=== PATIENT | male | born 1965 | race Caucasian/White ===

== ENCOUNTER 2018-12-11 19:22 | Emergency (ER) | payer OTHER ==
[~2018-12-11] VITALS: Ht 170.2 cm; Wt 66.7 kg
[2018-12-11 20:13] LABS: ABSOLUTE NEUTROPHILS 4.2 thou/uL (1.4-8.2); EOSINOPHILS 0.7 % (0.0-3.0); HEMATOCRIT 48.2 % (42.0-52.0); HEMOGLOBIN 16.8 gm/dL (14.0-18.0); MCH 36.7 pg (26.0-34.0); MCV 104.8 fL (80.0-100.0); MONOCYTES 9.7 % (1.0-8.0); PLATELET COUNT 196 thou/uL (150-400); POLYS 61.6 % (36.0-66.0); RBC 4.59 mil/uL (4.50-6.00); RDW 12.9 % (10.5-14.5); WBC 6.8 thou/uL (4.0-11.0)
[2018-12-11 20:19] LABS: CALCIUM 8.9 mg/dL (8.5-10.1); CREATININE 0.7 mg/dL (0.7-1.3); POTASSIUM 3.5 mmol/L (3.5-5.1)
[2018-12-11 22:30] LABS: AMP/METHAMP Negative (Negative); BARBITURATES Negative (Negative); BENZODIAZEPINES Negative (Negative); COCAINE Negative (Negative); METHADONE Negative (Negative); OPIATES Negative (Negative); PCP Negative (Negative)
--- NOTE | 2018-12-11 23:37 | EKG ---
[address] [place] [address] ELECTROCARDIOGRAM REPORT Name: NIKO HILLIARD Room #: YOLI Mendoza#: [id number] Admission: 12/11/18 Attend Phys: Discharge: Date of : 67 Report #: [id number] THIS REPORT FOR: //name// [facility] ED Test Date: 2018-12-11 Test Time: 20:01:02 Pat Name: NIKO HILLIARD Department: Room: Gender: M Copyholder: YASMINE NEWELL : 1965 Requested By: Patrica Dhaliwal Order Number: [id number] MD: Allan Chavarria Measurements Intervals [place] Rate: 82 P: 73 FL: 163 QRS: 54 QRSD: 96 T: 44 QT: 376 QTc: 439 Interpretive Statements Sinus rhythm No previous ECG available for comparison Electronically Signed On 12-11-2018 23:37:01 CLINICAL MARKETING MANAGER by Allan Chavarria [email or web address] <ELECTRONICALLY SIGNED> By: Allan Chavarria MD 12/11/18 2337 00 00 Allan Chavarria MD /EPI
[2018-12-12 05:21] VITALS: BP 121/83
== END 2018-12-12 05:22 | disposition home or self-care (01) ==
LOC: ER 19:22
PROVIDERS: Student in an Organized Health Care Education/Training Program
DX: F10.129 Alcohol abuse with intoxication, unspecified (principal)

== ENCOUNTER 2019-01-05 14:43 | Emergency (ER) | payer OTHER ==
[~2019-01-05] VITALS: Ht 170.2 cm; Wt 65.8 kg
[2019-01-05 15:32] LABS: URINE BILIRUBIN NEGATIVE (Negative); URINE BLOOD TRACE (Negative); URINE CLARITY CLEAR; URINE COLOR YELLOW; URINE GLUCOSE-RANDOM* NEGATIVE (Negative); URINE KETONES NEGATIVE (Negative); URINE LEUKOCYTES-REFLEX NEGATIVE (Negative); URINE NITRITE-REFLEX NEGATIVE (Negative); URINE PROTEIN (DIPSTICK) 3+ (Negative); URINE UROBILINOGEN 0.2 E.U./dl (0.2-1.0)
[2019-01-05 15:36] LABS: CALCIUM 8.6 mg/dL (8.5-10.1); CREATININE 0.7 mg/dL (0.7-1.3); POTASSIUM 3.6 mmol/L (3.5-5.1)
[2019-01-05 15:37] LABS: ABSOLUTE NEUTROPHILS 3.3 thou/uL (1.4-8.2); BASOPHILS 1.1 % (0.0-2.0); EOSINOPHILS 0.4 % (0.0-3.0); HEMATOCRIT 50.1 % (42.0-52.0); HEMOGLOBIN 17.5 gm/dL (14.0-18.0); LYMPHOCYTES 37.2 % (24.0-44.0); MCH 36.4 pg (26.0-34.0); MCV 103.9 fL (80.0-100.0); MONOCYTES 8.3 % (1.0-8.0); PLATELET COUNT 134 thou/uL (150-400); RBC 4.82 mil/uL (4.50-6.00); RDW 13.6 % (10.5-14.5); WBC 6.3 thou/uL (4.0-11.0)
[2019-01-05 15:40] LABS: AMP/METHAMP Negative (Negative); BARBITURATES Negative (Negative); BENZODIAZEPINES Negative (Negative); COCAINE Negative (Negative); METHADONE Negative (Negative); OPIATES Negative (Negative); PCP Negative (Negative)
[2019-01-05 15:41] LABS: BACTERIA-REFLEX None Seen /HPF (None Seen); CRYSTALS None Seen /LPF (None Seen); HYALINE CASTS 0-3 Few /LPF (None Seen); SQUAMOUS None Seen /LPF (0-3); URINE RBC 0-2 Rare /HPF (0-2); URINE WBC-REFLEX 0-5 Rare /HPF (0-5)
[2019-01-05 17:30] VITALS: BP 138/98
== END 2019-01-05 19:55 | disposition home or self-care (01) ==
LOC: ER 14:43
PROVIDERS: Emergency Medicine
DX: F10.129 Alcohol abuse with intoxication, unspecified (principal); Y90.8 Blood alcohol level of 240 mg/100 ml or more

== ENCOUNTER 2019-08-28 03:10 | Emergency (ER) | payer OTHER ==
[~2019-08-28] VITALS: Ht 170.2 cm; Wt 63.5 kg
[2019-08-28 04:17] LABS: HEMATOCRIT 49.5 % (42.0-52.0); HEMOGLOBIN 17.2 gm/dL (14.0-18.0); MCH 36.4 pg (26.0-34.0); MCHC 34.8 g/dL (28.0-37.0); MCV 104.7 fL (80.0-100.0); RBC 4.73 mil/uL (4.50-6.00); RDW 14.3 % (10.5-14.5); WBC 7.1 thou/uL (4.0-11.0)
[2019-08-28 04:36] LABS: CALCIUM 8.5 mg/dL (8.5-10.1); CREATININE 0.9 mg/dL (0.7-1.3); POTASSIUM 3.9 mmol/L (3.5-5.1)
[2019-08-28 13:02] VITALS: BP 136/92
== END 2019-08-28 13:02 | disposition home or self-care (01) ==
LOC: ER 03:10
PROVIDERS: Emergency Medicine
DX: F32.9 Major depressive disorder, single episode, unspecified (principal); F10.129 Alcohol abuse with intoxication, unspecified; R45.851 Suicidal ideations; Y90.0 Blood alcohol level of less than 20 mg/100 ml

== ENCOUNTER 2019-12-04 12:13 | Emergency (ER) | payer OTHER ==
[~2019-12-04] VITALS: Ht 167.6 cm; Wt 61.2 kg
[2019-12-04 12:47] LABS: ABSOLUTE NEUTROPHILS 7.2 thou/uL (1.4-8.2); BASOPHILS 0.6 % (0.0-2.0); EOSINOPHILS 0.4 % (0.0-3.0); HEMATOCRIT 53.1 % (42.0-52.0); LYMPHOCYTES 27.2 % (24.0-44.0); MCH 34.4 pg (26.0-34.0); MCHC 33.8 g/dL (28.0-37.0); MCV 101.7 fL (80.0-100.0); MONOCYTES 7.4 % (1.0-8.0); PLATELET COUNT 210 thou/uL (150-400); POLYS 64.4 % (36.0-66.0); RBC 5.22 mil/uL (4.50-6.00); RDW 13.5 % (10.5-14.5); WBC 11.2 thou/uL (4.0-11.0)
[2019-12-04 12:55] LABS: CALCIUM 8.8 mg/dL (8.5-10.1); CREATININE 0.9 mg/dL (0.7-1.3); POTASSIUM 3.9 mmol/L (3.5-5.1)
[2019-12-04 13:01] LABS: ALBUMIN 3.8 g/dL (3.4-5.0); TOTAL BILIRUBIN 0.4 mg/dL (<0.1-1.0); TOTAL PROTEIN 7.9 g/dL (6.4-8.2)
[2019-12-04 13:59] LABS: URINE BILIRUBIN NEGATIVE (Negative); URINE BLOOD 1+ (Negative); URINE CLARITY CLEAR; URINE COLOR YELLOW; URINE GLUCOSE-RANDOM* NEGATIVE (Negative); URINE KETONES 1+ (Negative); URINE LEUKOCYTES-REFLEX NEGATIVE (Negative); URINE NITRITE-REFLEX NEGATIVE (Negative); URINE PROTEIN (DIPSTICK) 2+ (Negative); URINE UROBILINOGEN 0.2 E.U./dl (0.2-1.0)
[2019-12-04 14:07] LABS: SQUAMOUS 0-3 Few /LPF (0-3); URINE WBC-REFLEX 0-5 Rare /HPF (0-5)
[2019-12-04 14:08] LABS: BACTERIA-REFLEX 1-9 Few /HPF (None Seen); CASTS None Seen /LPF (None Seen); CRYSTALS None Seen /LPF (None Seen); URINE RBC 0-2 Rare /HPF (0-2)
[2019-12-04 14:46] VITALS: BP 105/67
== END 2019-12-04 15:30 | disposition home or self-care (01) ==
LOC: ER 12:13
PROVIDERS: Physician Assistant
DX: K62.5 Hemorrhage of anus and rectum (principal); F10.10 Alcohol abuse, uncomplicated; G89.29 Other chronic pain; M54.9 Dorsalgia, unspecified

== ENCOUNTER 2019-12-31 19:36 | Inpatient (IN) | payer OTHER ==
[~2019-12-31] VITALS: Ht 170.2 cm; Wt 70.4 kg
--- NOTE | ~2019-12-31 | O ---
[facility] [place] [address] OPERATIVE REPORT Name: NIKO HILLIARD Room #: 211-P ADM IN M.R.#: [id number] Admission: 12/31/19 Attend Phys: Jaclyn Brewer MD Discharge: Date of : 67 Report #: [id number] THIS REPORT FOR: cc: LUISA - No family physician/PCP LUISA - No family physician/PCP Villa Stern MD ~ THIS REPORT FOR: //name// CC: LUISA physician/PCP Jaclyn Brewer DATE OF SERVICE: 01/02/2020 PREOPERATIVE DIAGNOSIS: Mandible fracture. POSTOPERATIVE DIAGNOSIS: Mandible fracture. OPERATIVE PROCEDURE: Intradental wire of anterior body of mandible fracture. ANESTHESIA: General by laryngeal mask. DESCRIPTION OF PROCEDURE: The patient was taken to the operating room and placed in supine position. General anesthesia was induced by laryngeal mask. Once adequate general anesthesia was obtained, a 24-gauge wire was threaded between the two anterior incisors. It was then approximated and twisted to bring them together and to bring the mandible fracture together. There was quite a bit of purulence flowing from the wound as I brought the 2 fracture fragments together. I then cut the wire and tucked it for comfort. The patient tolerated the procedure well and he was undergoing a procedure on his hand by Dr. Edwards. By: 1014 1022 Villa Stern MD /nt
[2019-12-31 19:39] VITALS: BP 117/74
[2019-12-31 20:44] LABS: HEMATOCRIT 43.8 % (42.0-52.0); MCH 34.7 pg (26.0-34.0); MCHC 34.2 g/dL (28.0-37.0); MCV 101.4 fL (80.0-100.0); PLATELET COUNT 121 thou/uL (150-400); RBC 4.31 mil/uL (4.50-6.00); RDW 14.6 % (10.5-14.5); WBC 22.8 thou/uL (4.0-11.0)
[2019-12-31 20:54] LABS: CALCIUM 8.6 mg/dL (8.5-10.1); CREATININE 1.1 mg/dL (0.7-1.3); POTASSIUM 3.8 mmol/L (3.5-5.1)
[2019-12-31 21:00] LABS: ALBUMIN 2.8 g/dL (3.4-5.0); TOTAL BILIRUBIN 0.9 mg/dL (<0.1-1.0); TOTAL PROTEIN 7.5 g/dL (6.4-8.2)
[2019-12-31] MEDS ORDERED: LIPITOR 20 MG T20 M1 PO (21:03)
[2019-12-31] MEDS ORDERED: VISTARIL50 MG PO (21:04)
[2019-12-31] MEDS ORDERED: REVIA 50 MG TAB50 MG PO (21:05)
[2019-12-31] MEDS ORDERED: M-NATAL PLUS T1 EACH PO (21:06)
[2019-12-31] MEDS ORDERED: BRINTELLIX10 MG PO (21:06)
[2019-12-31 21:16] LABS: ABSOLUTE NEUTROPHILS 21.7 thou/uL (1.4-8.2); PLATELET ESTIMATE DECREASED
[2019-12-31 22:04] VITALS: BP 103/55
[2019-12-31 22:18] VITALS: BP 107/70
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
[2020-01-01 02:54] VITALS: BP 102/71
[2020-01-01 03:22] LABS: HEMATOCRIT 40.8 % (42.0-52.0); HEMOGLOBIN 13.8 gm/dL (14.0-18.0); MCH 33.9 pg (26.0-34.0); MCHC 33.8 g/dL (28.0-37.0); MCV 100.1 fL (80.0-100.0); RBC 4.08 mil/uL (4.50-6.00); RDW 14.1 % (10.5-14.5); WBC 14.6 thou/uL (4.0-11.0)
[2020-01-01 03:31] LABS: CALCIUM 8.1 mg/dL (8.5-10.1)
--- NOTE | 2020-01-01 03:37 | NUR ---
ASSESSMENT: PT ARRIVED ON THE UNIT AT APPROXIMATRLY 2300 VIA ED ACCOMPANIED BY STAFF MEMBER. VSS. HR ELELVATED 120-130'S. ETOH LEVEL 220. PT APPPEARS UNKEMPT. LEFT HAND NOTED WITH 3+ EDEMA, RIGHT HAND 2= EDEMA. BOTH RED BILATERALLY. PT REAT PAIN 3/10. PT WAS MORE CONCERNED WITH HIS LOOSE TEETH, SAYING THAT HE WAS GOING TO PULL SOME OUT ON THE BOTTOM BUT PLACED THEM BACK IN INCORRECTLY AND IT WAS VERY DIFFICULT TO EAT. DULCE MARIA HUIZAR WAS CONCULTED TO SEE ROUTINELY IN THE AM. NO CALL BACK, MESSAGE LET WITH ANSWERING SERVICE. CIWA SCORE 2-4. PT STATE THAT HE FELL LAST WEEK R/T TO THE SNOW AND ICE. PT HAS A STEADY GAIT. URINE WAS DARK ACSPER COLORED, USES URINAL. AFEBRILE. ST PER MONITOR. SLOW PROGRESS TOWARDS DC GOALS, WILL CONTINUE TO MONITOR.
[2020-01-01 07:17] VITALS: BP 120/71
[2020-01-01 12:02] VITALS: BP 101/65
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
--- NOTE | 2020-01-01 18:04 | NUR ---
RECEIVED PT'S CARE AROUND 0710; PT. ON BED; AOX4; NO DIET ORDERS PLACED; POTASSIUM 3.0; PHYSICIAN PAGED; ORDERS RECEIVED; POTASSIUM REPLACED; DURING ASSESSMENT PT. C/O BACK PAIN & HANDS; PHYSICIAN NOTIFIED; NO NEW ORDERS; CULTURE RESULTS FROM LAB RECEIVED; PHYSICIAN NOTIFIED DURING ROUNDING; NO NEW ORDERS; PHYSICIAN ROUNDING ON PT AROUND 1030; ONE MORE TIME NOTIFIED ABOUT DIET; ORDERS RECEIVED; CONSULT DONE; VANCOMYCIN STARTED; PT. EDUCATED ABOUT FALL PRECAUTIONS; ST. UNDERSTANDING; MRI ORDERS ON PLACED; SCREENING PERFORMED; PER CONSULT ORDERS MRI STAT; CHANGED IT; ST ON THE MONITOR WITH EXERTION; NO C/O PALPITATIONS; REQUESTED VACCINE RECORTS FROM DOG'S FRIEND; ST. WILL REQUEST IT; ASSESSMENT CHARGED; FOLLOWING POC; WILL PASS ON REPORT;
[2020-01-01 18:09] VITALS: BP 114/72
[2020-01-01 20:10] VITALS: BP 119/70
[2020-01-02 04:45] VITALS: BP 108/67
[2020-01-02 06:10] LABS: HEMATOCRIT 34.2 % (42.0-52.0); MCH 34.9 pg (26.0-34.0); MCHC 34.4 g/dL (28.0-37.0); MCV 101.6 fL (80.0-100.0); RBC 3.37 mil/uL (4.50-6.00); RDW 14.9 % (10.5-14.5); WBC 13.3 thou/uL (4.0-11.0)
[2020-01-02 06:18] LABS: CALCIUM 7.8 mg/dL (8.5-10.1); CREATININE 0.9 mg/dL (0.7-1.3)
[2020-01-02 06:25] LABS: POTASSIUM 2.9 mmol/L (3.5-5.1)
[2020-01-02 07:07] LABS: HEMOGLOBIN 11.8 gm/dL (14.0-18.0)
--- NOTE | 2020-01-02 07:45 | NUR ---
PATIENT NPO SINCE MIDNIGHT FOR A POSSIBLE I&D TODAY.CT WAS DONE LAST NIGHT.OTORHINOLARYNGOLOGY WAS CONSULTED FOR MANDIBULAR FRACTURE.POTASSIUM LOW THIS AM;REPLACED IT WITH IV POTASSIUM.POC CONTINUED.
[2020-01-02 08:00] VITALS: BP 94/44
[2020-01-02 12:13] VITALS: BP 116/84
[2020-01-02 16:00] VITALS: BP 109/74
--- NOTE | 2020-01-02 16:00 | NUR ---
PT RETURNED FROM OR, SAEED BANDAGE ON LEFT ARM, DENIES PAIN, ATE LUNCH, NO PROBLEMS SWALLOWING FOOD. PT'S ARM RAISED ABOVE LEVEL OF HEART. WILL MONITOR.
[2020-01-02 19:36] VITALS: BP 112/79
[2020-01-03 03:15] VITALS: BP 125/88
--- NOTE | 2020-01-03 04:48 | NUR ---
ASSUMED PT CARE AT AROUND 1900, PT IS ALERT AND ORIENTEDX4,DENIES CHEST PAIN OR SOB, COMLAINED OF JAW PAIN AND BACK PAIN, PAIN MEDICINE GIVEN WITH PARTIAL RELIEF,PT IS ON ABT, NO ADVERSE REACTIONS NOTED, SR ON THE MONITOR, ASSESSMENTS CHARTED, RESTED WELL, WILL CONTINUE TO MONITOR
[2020-01-03 07:50] VITALS: BP 131/83
--- NOTE | 2020-01-03 08:32 | O ---
[facility] [place] [address] OPERATIVE REPORT Name: NIKO HILLIARD Room #: 211-P ADM IN M.R.#: [id number] Admission: 12/31/19 Attend Phys: Jaclyn Brewer MD Discharge: Date of : 67 Report #: [id number] THIS REPORT FOR: cc: LUISA - No family physician/PCP LUISA - No family physician/PCP Christiano Edwards MD ~ THIS REPORT FOR: //name// CC: [facility] physician/PCP Jaclyn Brewer DATE OF SERVICE: 01/02/2020 PREOPERATIVE DIAGNOSIS: Left hand abscess. POSTOPERATIVE DIAGNOSIS: Left hand abscess. PROCEDURE: I and D, left hand. SURGEON: Christiano Edwards MD. LOADERS: Mariajose Dobbs. ANESTHESIA: General. FINDINGS: There is purulence in the first webspace with epidermal lysis of the dorsum of the hand. SPECIMENS: Cultures were sent of the purulent fluid. TOURNIQUET TIME: 8 minutes. COMPLICATIONS: None. CONDITION UPON LEAVING THE OPERATING ROOM: Stable. INDICATIONS FOR PROCEDURE: The patient is a 54-year-old male who about a week or so ago was reportedly bitten by a dog. He has had significant inflammation and swelling in the dorsum of his hand. MRI scan shown to have cellulitis of the dorsum of his hand with possible tenosynovitis of his extensor tendons. After discussion with him, he elected for I and D of his left hand. DESCRIPTION OF PROCEDURE: Risks, benefits, alternatives, complications were discussed in detail with the patient including but not limited to risk of anesthesia, risk of damage to nerves, arteries, blood vessels, risk for infection, bleeding, risk for continued infection, need for reoperation. [facility] [address] [place] [address] OPERATIVE REPORT Name: NIKO HILLIARD Room #: 211-P ADM IN M.R.#: [id number] Admission: 12/31/19 Attend Phys: Jaclyn Brewer MD Discharge: Date of : 67 Report #: [id number] Informed consent was obtained from the patient. Left hand was appropriately marked in the preoperative holding area. He previously was on IV antibiotics and these were continued, brought to the operating room and placed in supine position on operating room table. LMA anesthesia was induced without complication. Tourniquet was placed on the left upper extremity. Left upper extremity was prepped and draped in normal sterile fashion. Timeout was performed properly identifying the patient and procedure as well as instrumentation. All in the operating room were in agreement. Left upper extremity was elevated, tourniquet was inflated. Tourniquet time was 8 minutes. There was a dorsal eschar on the first webspace. This was removed and this wound was explored. This was extended ulnarly and proximal with 10 blade and the dorsal skin was undermined. There was noted to be purulence within the first dorsal webspace. This was opened with a mosquito hemostat. There was purulence in this area and cultures of this were taken. The wound was then thoroughly irrigated with normal saline and closed with 3-0 nylon. Soft dressing of Xeroform, 4 x 4's, Webril, Enrico wrap were applied. The patient tolerated this procedure well and went to recovery room under care of anesthesia postoperatively. <ELECTRONICALLY SIGNED> By: Christiano Edwards MD 01/03/20 0832 1044 1432 Christiano Edwards MD /nt
--- NOTE | 2020-01-03 12:08 | NUR ---
AAOX4 PLEASANT AND COOPERATIVE. SLEEPS FREQUENTLY. SITS UP FOR MEALS CONSUMES WITH GOOD APPETITE DESPITE JAW PAIN. LEFT HAND SAEED INTACT UP ON PILLOWS. AMBULATES WITH SLOW STEADY GAIT. DENIES NEED FOR NICOTINE PATCH. IV LEFT AC AREA. REPORTS LARGE BM. VOIDS WITHOUT DIFFICULTY. [facility] [place]
[2020-01-03 16:00] VITALS: BP 136/75
[2020-01-03 20:10] VITALS: BP 142/81
[2020-01-04 05:15] VITALS: BP 149/84
--- NOTE | 2020-01-04 05:20 | NUR ---
ASSUMED PT CARE AT 1900, PT IS A&OX4, NO DISTRESS NOTED, ASSESSMENTS CHARTED, DENIES CHEST PAIN, COMPLAINS OF JAW PAIN, MEDICATION GIVEN WITH PARTIAL RELIEF, RESTED WELL THROUGH THE NIGHT, WILL CONTINUE TO MONITOR
[2020-01-04 07:20] VITALS: BP 159/108
[2020-01-04 11:00] VITALS: BP 136/87
--- NOTE | 2020-01-04 14:36 | NUR ---
ASSUMED CARE OF PT APPROX 0700. PT A&OX4, VSS, PAIN IN LEFT HAND AND JAW. PATIENT USES URINAL. NO SIGNS OF DISTRESS. WILL CONTINUE TO MONITOR.
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
--- NOTE | 2020-01-04 15:30 | NUR ---
Patient with need for transfer due to need for oral sx. Patient reports agreeable to calling [facility] were he has been in past. Sp with Bin at transfer center they are in process of acceptane and referral. Updated phys at this time no acceptance.
[2020-01-04 16:00] VITALS: BP 136/79
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
--- NOTE | 2020-01-04 17:52 | NUR ---
Sp with Bin at transfer center who reports [facility] at capacity will revisit in am updated phys.
--- NOTE | 2020-01-04 19:45 | NUR ---
PT HAS A RT INNER FOREARM STAGE 4 PHLEBITIS ABOUT 12CM IN LENGTH. HEATING PAD ORDERED AND RN AWARE
[2020-01-04 19:58] VITALS: BP 170/95
[2020-01-04 22:50] VITALS: BP 150/93
--- NOTE | 2020-01-05 00:32 | NUR ---
PT AOX4, REPORTING 7/10 PAIN IN LEFT HAND AND MOUTH. PT RECEIVING PRN IV MORPHINE Q2HR AND PRN PO OXYCODONE Q4HR. PT INDEPENDENT FOR ADLS, AMBULATION, AND TRANSFERS. PT TOLERATING PO INTAKE WITH REPORTS OF DISCOMFORT IN MOUTH. PT ALSO REPORTS SOB WITH EXERTION ON ROOM AIR. PT ENCOURAGED TO TAKE TIME WITH AND IN BETWEEN ACTIVITIES. ENCOURAGED PT TO NOTIFY STAFF FOR ALL NEEDS. CALL LIGHT WITHIN REACH, BED ALARM ON, BED IN LOWEST POSITION. WILL CONTINUE TO MONITOR.
[2020-01-05 04:35] VITALS: BP 147/91
[2020-01-05 07:05] VITALS: BP 120/89
--- NOTE | 2020-01-05 07:56 | NUR ---
PT IN ROOM WALKING WITH STEADY GAIT. ALERT XS 4 STATES NO PAIN AT PRESENT, HAS LEFT HAND WITH DRESSING INTACT. PT IS PLEASANT AND COOPERATIVE WITH CARE.
[2020-01-05 08:57] LABS: ABSOLUTE NEUTROPHILS 11.8 thou/uL (1.4-8.2); BASOPHILS 1.3 % (0.0-2.0); HEMATOCRIT 37.7 % (42.0-52.0); HEMOGLOBIN 12.8 gm/dL (14.0-18.0); LYMPHOCYTES 21.4 % (24.0-44.0); MCH 34.1 pg (26.0-34.0); MCHC 33.8 g/dL (28.0-37.0); MCV 100.7 fL (80.0-100.0); MONOCYTES 7.1 % (1.0-8.0); PLATELET COUNT 202 thou/uL (150-400); POLYS 69.2 % (36.0-66.0); RBC 3.75 mil/uL (4.50-6.00); RDW 15.8 % (10.5-14.5)
[2020-01-05 09:04] LABS: CALCIUM 8.7 mg/dL (8.5-10.1); CREATININE 0.7 mg/dL (0.7-1.3); POTASSIUM 3.8 mmol/L (3.5-5.1)
--- NOTE | 2020-01-05 09:10 | NUR ---
spoke with [facility] this am the hospital closed, open to only stemi, stroke and trauma. They have casemgt number to call for acceptance.
--- NOTE | 2020-01-05 15:23 | NUR ---
CM CALLED [facility] AND IT WAS INDICATED THAT THEY HAD ORAL SURGERY BUT THAT THEY WERE AT CAPACITY TODAY. CM TO FOLLOW INDICATED WITH [facility]
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
--- NOTE | 2020-01-05 16:38 | NUR ---
spoke with household manager at [facility], they no longer have oral sx. They have oral sx on outpatient basis but no [facility] has avail. Cas[facility]gt to inquire into [facility].
[2020-01-05 17:34] VITALS: BP 131/85
[2020-01-05 19:10] VITALS: BP 129/75
--- NOTE | 2020-01-06 01:58 | NUR ---
ASSESSED AT START OF SHIFT PT A&OX4. C/O OF PAIN IN JAW OF A 04/10. PAIN MED GIVEN SEE EMAR. IV INTACT FLUIDS INFUISING AND ABX GIVEN. PT AD ALCON AND UP TO BATHROOM. DRESSING INTACT. CALL LIGHT IN REACH AND WILL CONT WITH POC TILL EOS.
[2020-01-06 03:15] VITALS: BP 143/95
[2020-01-06 07:27] VITALS: BP 137/85
--- NOTE | 2020-01-06 07:29 | NUR ---
PT IN ROOM WATCHING TV GAVE PRN PAIN PILL DRESSING INTACT TO LEFT HAND. PT PLEASANT AND COOPERATIVE WITH CARE.
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
--- NOTE | 2020-01-06 10:24 | NUR ---
WOUND CARE PICTURES TAKEN AT THIS TIME. WOUND CARE DOCTOR HERE TO SEE PATIENT. PT RESTING IN BED ALERT XS 4.
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
--- NOTE | 2020-01-06 15:34 | NUR ---
PATIENT TO BE DISCHARGED TO HOME RX'S GIVEN TO FAMILY SO THAT THEY CAN FILL AT PHARMACY.IV ACSESS DCD, ALL BELONGINGS PACKED AND TO BE SENT WITH PATIENT.
[2020-01-06 16:49] VITALS: BP 137/71
--- NOTE | 2020-01-06 16:51 | NUR ---
CM CONTACTED [facility] THEY INDICATED [place] LOCATION HAD ORAL SURGERY. CM FAXED FACESHEET. CM MET WITH PT TO GET COPY OF HIS MEDICAID CARD PT DIDN'T HAVE IT ON HIM. CONTACTED [place] FOR COPY TO BE FAXED LEFT . CM NOTIFIED INTAKE AT [facility] AND THEY INDICATED THEY CAN'T PROCEED WITHOUT COPY. CM TO FOLLOW INDICATED WITH DC PLANNING.
[2020-01-06 19:10] VITALS: BP 137/80
[2020-01-07 03:15] VITALS: BP 117/68
--- NOTE | 2020-01-07 05:00 | NUR ---
Assumed pt care @1915. pt a&ox4. adlib in room. pain controlled with current pain regimen. [facility] called and stated that they needed pt's insurance card front and back faxed to them for pt to be able to tranfer over. pt stated that he would have to contact his social security specialist to get his insurance care. report off to day shift nurse to follow up with social security specialist. no s/s of distress noted. will cont to monitor
[2020-01-07 07:15] VITALS: BP 127/58
--- NOTE | 2020-01-07 09:48 | NUR ---
PT IN ROOM GIVEN PRN PAIN MED FOR MOUTH PAIN. PT ATE 100% BREAKFAST AND DRANK 100% ENSURE, PT IS CONT OF B&B. HAS IV FLUIDS AND IV ABT'S. PLEASANT AND COOPERATIVE WITH CARE.
--- NOTE | 2020-01-07 14:58 | NUR ---
FAXED MEDICAID PRINT OFF TO [facility] THIS AM. SPOKE WITH ERNST AT TRANSFER CENTER. AWAITING RESPONSE. CM TO FOLLOW INDICATED WITH DC PLANNING.
[2020-01-07 15:29] VITALS: BP 129/76
--- NOTE | 2020-01-07 16:26 | NUR ---
PATIENT TO MOVE TO SENIOR SUITES ROOM 407 REPORT CALLED TO [facility]. ALL BELONGINGS TO BE PACKED AND SENT WITH PATIENT. TX TO HAND COMPLETED.
[2020-01-07 18:06] VITALS: BP 126/50
--- NOTE | 2020-01-07 18:06 | NUR ---
RECEIVED CALL FROM [facility] SAYING BED WAS AVAILABLE THIS EVENING. PT WILL GO TO [id number]. [facility] ARRANGED FOR NEXT AVAILABLE BUT 5 TRANSPORTS AHEAD OF THIS ON. PT AWARE. CHART COPY UPDATED WITH TODAYS'S NOTES.
== END 2020-01-07 18:40 | disposition short-term general hospital (02) | DRG 872 ==
LOC: ER 19:36 → EROBS 21:48 → 2N 21:48 → 4S 01-04 22:45 → 4N 01-07 16:50
PROVIDERS: Hospitalist; Nurse Practitioner Family; Physician Assistant; ADMIT Internal Medicine
PROC: 0H9GXZZ Drainage of Left Hand Skin, External Approach (ICD-10-PCS; principal; 2020-01-02)
DX: A41.9 Sepsis, unspecified organism (principal); L03.114 Cellulitis of left upper limb; E44.0 Moderate protein-calorie malnutrition; L02.512 Cutaneous abscess of left hand; R65.20 Severe sepsis without septic shock; S61.452A Open bite of left hand, initial encounter; F41.9 Anxiety disorder, unspecified; G89.29 Other chronic pain; M54.9 Dorsalgia, unspecified; F32.9 Major depressive disorder, single episode, unspecified; E78.5 Hyperlipidemia, unspecified; F10.229 Alcohol dependence with intoxication, unspecified; M65.9 Synovitis and tenosynovitis, unspecified; Z68.24 Body mass index [BMI] 24.0-24.9, adult; Z71.6 Tobacco abuse counseling; S62.92XA Unspecified fracture of left hand, initial encounter for closed fracture; W54.0XXA Bitten by dog, initial encounter; Y93.89 Activity, other specified; Y92.89 Other specified places as the place of occurrence of the external cause; Y99.8 Other external cause status
CPT/HCPCS: 10081; 10102; 50010; 50101; 50386; 53078; 56527; 57091; 57103; 57178; 62110; 62900; 64037; 70005

== ENCOUNTER 2020-01-26 01:39 | Emergency (ER) | payer OTHER ==
[~2020-01-26] VITALS: Ht 170.2 cm; Wt 63.5 kg
[~2020-01-26 01:39] MED LIST: BRINTELLIX10 MG PO; LIPITOR 20 MG T20 M1 PO; M-NATAL PLUS T1 EACH PO; REVIA 50 MG TAB50 MG PO; VISTARIL50 MG PO
[2020-01-26] MEDS ORDERED: TRAZODONE 150150 M1 PO (01:58)
[2020-01-26] MEDS ORDERED: ROXICODONE5 MG PO (02:01)
[2020-01-26] MEDS ORDERED: AUGMENTIN 875-1 EACH PO (02:02)
[2020-01-26 02:42] LABS: URINE BILIRUBIN NEGATIVE (Negative); URINE BLOOD NEGATIVE (Negative); URINE CLARITY CLEAR; URINE COLOR YELLOW; URINE GLUCOSE-RANDOM* NEGATIVE (Negative); URINE KETONES NEGATIVE (Negative); URINE LEUKOCYTES-REFLEX NEGATIVE (Negative); URINE NITRITE-REFLEX NEGATIVE (Negative); URINE PROTEIN (DIPSTICK) NEGATIVE (Negative); URINE SPECIFIC GRAVITY <= 1.005 (1.005-1.035); URINE UROBILINOGEN 0.2 E.U./dl (0.2-1.0)
[2020-01-26 02:43] LABS: HEMATOCRIT 44.8 % (42.0-52.0); HEMOGLOBIN 15.2 gm/dL (14.0-18.0); MCH 35.1 pg (26.0-34.0); MCV 103.3 fL (80.0-100.0); RBC 4.34 mil/uL (4.50-6.00); RDW 15.9 % (10.5-14.5); WBC 8.6 thou/uL (4.0-11.0)
[2020-01-26 02:54] LABS: CREATININE 0.8 mg/dL (0.7-1.3); POTASSIUM 3.6 mmol/L (3.5-5.1); SALICYLATE 4.8 mg/dL (2.8-20.0)
[2020-01-26 02:56] LABS: AMP/METHAMP POSITIVE (Negative); BARBITURATES Negative (Negative); BENZODIAZEPINES Negative (Negative); COCAINE Negative (Negative); METHADONE Negative (Negative); OPIATES Negative (Negative); PCP Negative (Negative)
[2020-01-26 10:36] VITALS: BP 130/80
[2020-01-29 18:06] LABS: TRICYCLIC (TCA) CONFIRMATION Negative ng/mL (Cutoff=100)
== END 2020-01-26 10:48 | disposition home or self-care (01) ==
LOC: ER 01:39
PROVIDERS: Emergency Medicine
DX: R45.851 Suicidal ideations (principal); E78.5 Hyperlipidemia, unspecified; I10 Essential (primary) hypertension; F32.9 Major depressive disorder, single episode, unspecified; F17.210 Nicotine dependence, cigarettes, uncomplicated; F41.9 Anxiety disorder, unspecified; Z79.899 Other long term (current) drug therapy

== ENCOUNTER 2020-03-12 21:49 | Emergency (ER) | payer OTHER ==
[~2020-03-12] VITALS: Ht 165.1 cm; Wt 68.0 kg
[~2020-03-12 21:49] MED LIST changes: +AUGMENTIN 875-1 EACH PO; +ROXICODONE5 MG PO; +TRAZODONE 150150 M1 PO
[2020-03-12] MEDS ORDERED: NAPROSYN500 MG PO (22:36)
[2020-03-12] MEDS ORDERED: KEFLEX500 M1 PO (22:36)
[2020-03-12 23:05] VITALS: BP 142/82
== END 2020-03-12 23:00 | disposition home or self-care (01) ==
LOC: ER 21:49
DX: L03.012 Cellulitis of left finger (principal); M25.532 Pain in left wrist; I10 Essential (primary) hypertension; E78.5 Hyperlipidemia, unspecified; M54.9 Dorsalgia, unspecified; G89.29 Other chronic pain; F41.9 Anxiety disorder, unspecified; F32.9 Major depressive disorder, single episode, unspecified; F17.210 Nicotine dependence, cigarettes, uncomplicated

== ENCOUNTER 2020-03-30 21:08 | Emergency (ER) | payer OTHER ==
[~2020-03-30] VITALS: Ht 170.2 cm; Wt 68.0 kg
[~2020-03-30 21:08] MED LIST changes: +KEFLEX500 M1 PO; +NAPROSYN500 MG PO
[2020-03-30] MEDS ORDERED: HYDROXYZINE PAM50 MG PO (21:14)
[2020-03-30 21:52] LABS: HEMATOCRIT 47.7 % (42.0-52.0); HEMOGLOBIN 16.4 gm/dL (14.0-18.0); MCH 34.9 pg (26.0-34.0); MCHC 34.3 g/dL (28.0-37.0); MCV 101.8 fL (80.0-100.0); RBC 4.69 mil/uL (4.50-6.00); RDW 12.8 % (10.5-14.5)
[2020-03-30 21:58] LABS: URINE BILIRUBIN NEGATIVE (Negative); URINE BLOOD NEGATIVE (Negative); URINE CLARITY CLEAR; URINE COLOR YELLOW; URINE GLUCOSE-RANDOM* NEGATIVE (Negative); URINE KETONES NEGATIVE (Negative); URINE LEUKOCYTES-REFLEX NEGATIVE (Negative); URINE NITRITE-REFLEX NEGATIVE (Negative); URINE PROTEIN (DIPSTICK) NEGATIVE (Negative); URINE UROBILINOGEN 0.2 E.U./dl (0.2-1.0)
[2020-03-30 22:00] LABS: CALCIUM 8.6 mg/dL (8.5-10.1); POTASSIUM 3.3 mmol/L (3.5-5.1)
[2020-03-30 22:22] LABS: AMP/METHAMP Negative (Negative); BARBITURATES Negative (Negative); BENZODIAZEPINES Negative (Negative); COCAINE Negative (Negative); METHADONE Negative (Negative); OPIATES Negative (Negative); PCP Negative (Negative)
[2020-03-31 14:03] VITALS: BP 114/76
== END 2020-03-31 14:04 | disposition short-term general hospital (02) ==
LOC: ER 21:08
PROVIDERS: Emergency Medicine
DX: R45.850 Homicidal ideations (principal); F41.9 Anxiety disorder, unspecified; F32.9 Major depressive disorder, single episode, unspecified; I10 Essential (primary) hypertension; E78.5 Hyperlipidemia, unspecified; G89.29 Other chronic pain; F17.210 Nicotine dependence, cigarettes, uncomplicated; Z79.899 Other long term (current) drug therapy

== ENCOUNTER 2020-04-08 08:30 | Emergency (ER) | payer OTHER ==
[~2020-04-08] VITALS: Ht 170.2 cm; Wt 65.8 kg
[~2020-04-08 08:30] MED LIST changes: +HYDROXYZINE PAM50 MG PO
[2020-04-08 09:15] LABS: HEMATOCRIT 45.9 % (42.0-52.0); MCH 35.3 pg (26.0-34.0); MCHC 34.8 g/dL (28.0-37.0); MCV 101.3 fL (80.0-100.0); RBC 4.53 mil/uL (4.50-6.00); RDW 13.4 % (10.5-14.5); WBC 6.7 thou/uL (4.0-11.0)
[2020-04-08 09:25] LABS: AMP/METHAMP Negative (Negative); BARBITURATES Negative (Negative); BENZODIAZEPINES Negative (Negative); COCAINE Negative (Negative); METHADONE Negative (Negative); OPIATES Negative (Negative); PCP Negative (Negative)
[2020-04-08 09:26] LABS: ANION GAP 9 mmol/L (7-16); BUN 9 mg/dL (7-18); CALCIUM 8.1 mg/dL (8.5-10.1); CHLORIDE 106 mmol/L (98-107); CO2 29 mmol/L (21-32); CREATININE 0.8 mg/dL (0.7-1.3); GLUCOSE 101 mg/dL (74-106); POTASSIUM 3.8 mmol/L (3.5-5.1); SODIUM 144 mmol/L (136-145)
[2020-04-08 09:32] LABS: ALBUMIN 3.5 g/dL (3.4-5.0); SALICYLATE 5.3 mg/dL (2.8-20.0); SGOT 44 U/L (15-37); SGPT 92 U/L (30-65); TOTAL BILIRUBIN 0.1 mg/dL (<0.1-1.0); TOTAL PROTEIN 7.3 g/dL (6.4-8.2)
[2020-04-08 19:00] VITALS: BP 94/65
== END 2020-04-08 23:45 | disposition home or self-care (01) ==
LOC: ER 08:30
PROVIDERS: Emergency Medicine Emergency Medical Services
DX: F10.920 Alcohol use, unspecified with intoxication, uncomplicated (principal); R45.850 Homicidal ideations; R45.6 Violent behavior; F51.5 Nightmare disorder; E78.5 Hyperlipidemia, unspecified; I10 Essential (primary) hypertension; F41.9 Anxiety disorder, unspecified; F32.9 Major depressive disorder, single episode, unspecified; G89.29 Other chronic pain; F17.210 Nicotine dependence, cigarettes, uncomplicated; Z79.899 Other long term (current) drug therapy; Y90.8 Blood alcohol level of 240 mg/100 ml or more

== ENCOUNTER 2020-06-04 01:46 | Emergency (ER) | payer OTHER ==
[~2020-06-04] VITALS: Ht 170.2 cm; Wt 64.9 kg
[2020-06-04 02:42] LABS: ABSOLUTE NEUTROPHILS 3.3 thou/uL (1.4-8.2); BASOPHILS 0.9 % (0.0-2.0); HEMATOCRIT 46.6 % (42.0-52.0); LYMPHOCYTES 48.9 % (24.0-44.0); MCH 34.9 pg (26.0-34.0); MCHC 34.4 g/dL (28.0-37.0); MCV 101.2 fL (80.0-100.0); MONOCYTES 6.5 % (1.0-8.0); PLATELET COUNT 293 thou/uL (150-400); POLYS 41.7 % (36.0-66.0); RDW 14.9 % (10.5-14.5); WBC 7.8 thou/uL (4.0-11.0)
[2020-06-04 02:48] LABS: ANION GAP 13 mmol/L (7-16); BUN 9 mg/dL (7-18); CALCIUM 8.2 mg/dL (8.5-10.1); CHLORIDE 102 mmol/L (98-107); CO2 23 mmol/L (21-32); CREATININE 0.9 mg/dL (0.7-1.3); GLUCOSE 113 mg/dL (74-106); POTASSIUM 3.4 mmol/L (3.5-5.1); SODIUM 138 mmol/L (136-145)
[2020-06-04 02:54] LABS: ALBUMIN 3.7 g/dL (3.4-5.0); SALICYLATE 7.6 mg/dL (2.8-20.0); SGOT 30 U/L (15-37); SGPT 28 U/L (30-65); TOTAL BILIRUBIN 0.1 mg/dL (0.2-1.0); TOTAL PROTEIN 7.6 g/dL (6.4-8.2)
[2020-06-04 04:03] LABS: URINE BILIRUBIN NEGATIVE (Negative); URINE BLOOD NEGATIVE (Negative); URINE CLARITY CLEAR; URINE COLOR YELLOW; URINE GLUCOSE-RANDOM* NEGATIVE (Negative); URINE KETONES NEGATIVE (Negative); URINE LEUKOCYTES-REFLEX NEGATIVE (Negative); URINE NITRITE-REFLEX NEGATIVE (Negative); URINE PROTEIN (DIPSTICK) TRACE (Negative); URINE SPECIFIC GRAVITY 1.015 (1.005-1.035); URINE UROBILINOGEN 0.2 E.U./dl (0.2-1.0)
[2020-06-04 04:11] LABS: AMP/METHAMP Negative (Negative); BARBITURATES Negative (Negative); BENZODIAZEPINES Negative (Negative); COCAINE Negative (Negative); METHADONE Negative (Negative); OPIATES Negative (Negative); PCP Negative (Negative)
[2020-06-04 06:37] VITALS: BP 117/74
--- NOTE | 2020-06-06 07:39 | EKG ---
[facility] [place] [address] ELECTROCARDIOGRAM REPORT Name: INKO HILLIARD Room #: DEP [facility]..#: [id number] Admission: 06/04/20 Attend Phys: Discharge: 06/04/20 Date of : 67 Report #: [id number] THIS REPORT FOR: cc: LUISA - Latricia family physician/PCP LUISA - Latricia family physician/PCP Niraj De Jesus MD 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
== END 2020-06-04 06:53 | disposition home or self-care (01) ==
LOC: ER 01:46
PROVIDERS: Emergency Medicine
DX: R45.851 Suicidal ideations (principal); F10.129 Alcohol abuse with intoxication, unspecified; I10 Essential (primary) hypertension; E78.5 Hyperlipidemia, unspecified; G89.29 Other chronic pain; M54.9 Dorsalgia, unspecified; F17.210 Nicotine dependence, cigarettes, uncomplicated; Z79.899 Other long term (current) drug therapy; Y90.8 Blood alcohol level of 240 mg/100 ml or more

== ENCOUNTER 2020-11-26 18:03 | Emergency (ER) | payer OTHER ==
[~2020-11-26] VITALS: Ht 170.2 cm; Wt 65.8 kg
[2020-11-26 19:35] VITALS: BP 127/76
== END 2020-11-26 19:37 | disposition home or self-care (01) ==
LOC: ER 18:03
DX: S63.502A Unspecified sprain of left wrist, initial encounter (principal); F10.10 Alcohol abuse, uncomplicated; E78.5 Hyperlipidemia, unspecified; F41.9 Anxiety disorder, unspecified; I10 Essential (primary) hypertension; F32.9 Major depressive disorder, single episode, unspecified; F17.210 Nicotine dependence, cigarettes, uncomplicated; Z79.899 Other long term (current) drug therapy; Y90.8 Blood alcohol level of 240 mg/100 ml or more; W18.30XA Fall on same level, unspecified, initial encounter; Y93.89 Activity, other specified; Y92.89 Other specified places as the place of occurrence of the external cause; Y99.8 Other external cause status

== ENCOUNTER 2021-02-10 18:05 | Emergency (ER) | payer OTHER ==
[~2021-02-10] VITALS: Ht 170.2 cm; Wt 69.0 kg
[2021-02-10] MEDS ORDERED: PRISTIQ50 M1 PO (18:19)
[2021-02-10] MEDS ORDERED: CRESTOR40 MG PO (18:20)
[2021-02-10] MEDS ORDERED: BRINTELLIX20 MG PO (18:20)
[2021-02-10] MEDS ORDERED: REMERON15 M2 PO (18:21)
[2021-02-10 19:02] VITALS: BP 156/99
== END 2021-02-10 19:02 | disposition home or self-care (01) ==
LOC: ER 18:05
DX: S20.211A Contusion of right front wall of thorax, initial encounter (principal); F17.210 Nicotine dependence, cigarettes, uncomplicated; I10 Essential (primary) hypertension; E78.5 Hyperlipidemia, unspecified; G89.29 Other chronic pain; M54.9 Dorsalgia, unspecified; Z79.899 Other long term (current) drug therapy; X58.XXXA Exposure to other specified factors, initial encounter; Y93.89 Activity, other specified; Y92.89 Other specified places as the place of occurrence of the external cause; Y99.8 Other external cause status

== ENCOUNTER 2021-07-28 18:28 | Emergency (ER) | payer OTHER ==
[~2021-07-28] VITALS: Ht 170.2 cm; Wt 68.0 kg
--- NOTE | ~2021-07-28 | EMS ---
[address] [address] EMS Patient Care Report Name: NIKO HILLIARD Room #: DEP JANICE Mendoza#: [id number] Admission: 07/28/21 Attend Phys: Discharge: 07/29/21 Date of : 67 Report #: [id number] THIS REPORT FOR: //name// Report Transmitted: 07/31/2021 09:42 EMS Care Summary [place], [place] Incident [id number] @ 07/28/2021 17:56 Incident Location [address] [place], [place] [id number] Patient NIKO HILLIARD Male, 55 Years 1965 Patient Address [address] [place], [place] [id number] Patient History Asthma,Chronic Obstructive Pulmonary Disease (COPD),Hypertension (HTN),Alcohol Abuse, Patient Allergies No known allergies, Patient Medications Other, Chief Complaint SUICIDAL Disposition Transported No Lights/[place] Dispatch Reason Psychiatric Problem/Abnormal Behavior/Suicide Attempt Transported To [facility] Narrative M41 RESPONDED TO A RESIDENCE ON A SUCIDAL DEMOCRAT. PATIENT STATES HE IS SUICIDAL. PATIENT STATES HE WANTS TO GO TO THE HOSPITAL. [address] [address] EMS Patient Care Report Name: NIKO HILLIARD Room #: DEP Rajni.#: [id number] Admission: 07/28/21 Attend Phys: Discharge: 07/29/21 Date of : 67 Report #: [id number] UPON EMS ARRIVAL PATIENT FOUND SITTING ON PORCH TALKING TO TWO PD OFFICERS. PATIENT WALKS TO THE AMBULANCE AND IS BUCKLED IN WITH SEAT BELTS. 2 SETS OF VITALS OBTAINED EN ROUTE WITH NO SIGNIFICANT CHANGES. PATIENT WALKED FROM AMBULANCE TO HOSPITAL BED WITH NO PROBLEMS. REPORT GIVEN TO RN. RN SIGNATURE OBTAINED. BOTH PATIENT AND EMS WERE MASKED. Initial Vitals @18:07P: 108,R: 16,BP: 104/78,Pain: 6/10,GCS: 15,Glucose: 149,SpO2: 98,Revised Trauma: 12, @18:20P: 105,R: 16,BP: 110/76,Pain: 6/10,GCS: 15,SpO2: 98,Revised Trauma: 12, Assessments @18:03MENTAL:Person Oriented,Event Oriented,Time Oriented,Place Oriented,SKIN:HEENT:Head/Face: No Abnormalities,LUNG SOUNDS:General: No Abnormalities,ABDOMEN:General: No Abnormalities,PELVIS//GI:No Abnormalities,EXTREMITIES:Left Arm: No Abnormalities,Right Arm: No Abnormalities,Left Leg: No Abnormalities,Right Leg: No Abnormalities,PULSE:Radial: 2+ Normal,NEURO:No Abnormalities, Impression Behavioral/psychiatric episode Procedures @18:03BLS AssessmentResponse: Unchanged Timeline 17:53,Call Received 17:53,Dispatch Notified 17:56,Dispatched 17:56,En Route 18:01,On Scene 18:03,At Patient 18:03,BLS Assessment,Response: Unchanged 18:07,BP: 104/78 M,PULSE: 108,RR: 16 R,SPO2: 98 Ox,ETCO2: ,B,PAIN: 6,GCS: 15, 18:08,Depart Scene 18:20,BP: 110/76 M,PULSE: 105,RR: 16 R,SPO2: 98 Ox,ETCO2: ,BG: ,PAIN: 6,GCS: 15, 18:28,At Destination 18:39,Call Closed Disclaimer v1.1 Copyright 2020 [employer] This EMS Care Summary contains data elements from the applicable legal record (which may be displayed differently). It is designed to provide pertinent information for the following purposes: continuity of care, clinical quality, [facility] [address] [place] [address] EMS Patient Care Report Name: NIKO HILLIARD [facility] [id number] Admission: 07/28/21 Attend Phys: Discharge: 07/29/21 Date of : 67 Report #: [id number] and state data reporting. The complete legal record is available to ED staff and administrators of the receiving hospital in [employer]'s Patient Tracker. All data is provided "as is."
[~2021-07-28 18:28] MED LIST changes: +BRINTELLIX20 MG PO; +CRESTOR40 MG PO; +PRISTIQ50 M1 PO; +REMERON15 M2 PO
[2021-07-28 18:49] LABS: HEMATOCRIT 46.9 % (42.0-52.0); HEMOGLOBIN 16.3 gm/dL (14.0-18.0); MCH 36.4 pg (26.0-34.0); MCHC 34.8 g/dL (28.0-37.0); MCV 104.6 fL (80.0-100.0); PLATELET COUNT 157 thou/uL (150-400); RBC 4.49 mil/uL (4.50-6.00); RDW 12.9 % (10.5-14.5); WBC 7.6 thou/uL (4.0-11.0)
[2021-07-28 19:02] LABS: CALCIUM 8.3 mg/dL (8.5-10.1); CREATININE 0.8 mg/dL (0.7-1.3); POTASSIUM 3.3 mmol/L (3.5-5.1)
[2021-07-28 19:09] LABS: AMP/METHAMP Negative (Negative); BARBITURATES Negative (Negative); BENZODIAZEPINES Negative (Negative); COCAINE Negative (Negative); METHADONE Negative (Negative); OPIATES Negative (Negative); PCP Negative (Negative)
[2021-07-28 19:11] LABS: ALBUMIN 3.3 g/dL (3.4-5.0); SALICYLATE 6.9 mg/dL (2.8-20.0); TOTAL BILIRUBIN 0.2 mg/dL (0.2-1.0); TOTAL PROTEIN 7.2 g/dL (6.4-8.2)
[2021-07-28 19:59] LABS: ABSOLUTE NEUTROPHILS 7.1 thou/uL (1.4-8.2)
[2021-07-28 20:00] LABS: ANISOCYTOSIS 1+
[2021-07-29 07:50] VITALS: BP 145/88
--- NOTE | 2021-07-29 09:49 | EKG ---
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: NAVNEET GASPAR : 1965 Requested By: Chavo Banegas Order Number: [id number] MD: Niraj De Jesus Measurements Intervals [place] Rate: 90 P: -90 IN: 170 QRS: 259 QRSD: 126 T: 71 QT: 361 QTc: 442 Interpretive Statements Limb lead reversal, recommend repeat tracing Sinus or ectopic atrial rhythm Right bundle branch block Lead(s) I were not used for morphology analysis Compared to ECG 06/04/2020 02:13:56 Ectopic atrial rhythm now present Right bundle-branch block now present Electronically Signed On 07-29-2021 9:49:25 CDT by Niraj De Jesus [email or web address] <ELECTRONICALLY SIGNED> By: Niraj De Jesus MD, [facility] 07/29/21 0949 [id number] Niraj De Jesus MD, [facility] /EPI
== END 2021-07-29 07:50 ==
LOC: ER 18:28
PROVIDERS: Student in an Organized Health Care Education/Training Program
DX: R45.851 Suicidal ideations (principal); Z20.822 Contact with and (suspected) exposure to COVID-19; F10.10 Alcohol abuse, uncomplicated; E78.5 Hyperlipidemia, unspecified; F41.9 Anxiety disorder, unspecified; I10 Essential (primary) hypertension; F32.9 Major depressive disorder, single episode, unspecified; F17.210 Nicotine dependence, cigarettes, uncomplicated; Z79.899 Other long term (current) drug therapy

== ENCOUNTER 2021-08-09 22:40 | Emergency (ER) | payer OTHER ==
[~2021-08-09] VITALS: Ht 170.2 cm; Wt 73.0 kg
[2021-08-09 23:16] VITALS: BP 119/89
[2021-08-09] MEDS ORDERED: ATIVAN0.5 M1 PO (23:40)
== END 2021-08-10 00:16 | disposition home or self-care (01) ==
LOC: ER 22:40
DX: F10.129 Alcohol abuse with intoxication, unspecified (principal); F41.9 Anxiety disorder, unspecified; E78.5 Hyperlipidemia, unspecified; I10 Essential (primary) hypertension; F32.9 Major depressive disorder, single episode, unspecified; F17.210 Nicotine dependence, cigarettes, uncomplicated; Z79.899 Other long term (current) drug therapy; Z79.1 Long term (current) use of non-steroidal anti-inflammatories (NSAID)

== ENCOUNTER 2021-08-22 21:40 | Emergency (ER) | payer OTHER ==
[~2021-08-22] VITALS: Ht 170.2 cm; Wt 68.0 kg
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
[~2021-08-22 21:40] MED LIST changes: +ATIVAN0.5 M1 PO
[2021-08-22 22:10] LABS: HEMATOCRIT 45.8 % (42.0-52.0); HEMOGLOBIN 15.7 gm/dL (14.0-18.0); MCH 35.2 pg (26.0-34.0); MCHC 34.2 g/dL (28.0-37.0); PLATELET COUNT 307 thou/uL (150-400); RBC 4.45 mil/uL (4.50-6.00); RDW 13.4 % (10.5-14.5); WBC 8.1 thou/uL (4.0-11.0)
[2021-08-22 22:11] LABS: CALCIUM 8.5 mg/dL (8.5-10.1); CREATININE 0.9 mg/dL (0.7-1.3); POTASSIUM 3.5 mmol/L (3.5-5.1)
[2021-08-22 22:15] LABS: AMP/METHAMP Negative (Negative); BARBITURATES Negative (Negative); BENZODIAZEPINES Negative (Negative); COCAINE Negative (Negative); METHADONE Negative (Negative); OPIATES Negative (Negative); PCP Negative (Negative)
[2021-08-22 22:17] LABS: ALBUMIN 3.4 g/dL (3.4-5.0); DIRECT BILIRUBIN 0.1 mg/dL (<0.1-0.2); SALICYLATE 5.4 mg/dL (2.8-20.0); TOTAL BILIRUBIN 0.7 mg/dL (0.2-1.0); TOTAL PROTEIN 7.2 g/dL (6.4-8.2)
[2021-08-22 22:38] LABS: ABSOLUTE NEUTROPHILS 1.3 thou/uL (1.4-8.2)
[2021-08-22 22:39] LABS: ANISOCYTOSIS 1+; MACROCYTES 1+; PLATELET ESTIMATE NORMAL; POIKILOCYTOSIS 1+
[2021-08-23 00:52] VITALS: BP 158/89
== END 2021-08-23 00:53 | disposition home or self-care (01) ==
LOC: ER 21:40
PROVIDERS: Nurse Practitioner
DX: R45.851 Suicidal ideations (principal); Z20.822 Contact with and (suspected) exposure to COVID-19; E78.5 Hyperlipidemia, unspecified; F41.9 Anxiety disorder, unspecified; I10 Essential (primary) hypertension; F32.9 Major depressive disorder, single episode, unspecified; F17.210 Nicotine dependence, cigarettes, uncomplicated; F10.129 Alcohol abuse with intoxication, unspecified; Y90.8 Blood alcohol level of 240 mg/100 ml or more; Z79.899 Other long term (current) drug therapy; Z79.891 Long term (current) use of opiate analgesic

== ENCOUNTER 2021-09-05 03:24 | Emergency (ER) | payer OTHER ==
[~2021-09-05] VITALS: Ht 170.2 cm; Wt 81.7 kg
--- NOTE | ~2021-09-05 | EMS ---
[facility] [address] [place] [address] EMS Patient Care Report Name: NIKO HILLIARD Room #: DEP JANICE Mendoza#: [id number] Admission: 09/05/21 Attend Phys: Discharge: 09/05/21 Date of : 67 Report #: [id number] THIS REPORT FOR: //name// Report Transmitted: 09/06/2021 12:37 EMS Care Summary [place], [place] Incident [id number] @ 09/05/2021 02:58 Incident Location [address] [place], [place] [id number] Patient NIKO HILLIARD Male, 56 Years 1965 Patient Address [address] [place], [place] [id number] Patient History Asthma,Chronic Obstructive Pulmonary Disease (COPD),Hypertension (HTN),Alcohol Abuse, Patient Allergies No known allergies, Patient Medications Other, Chief Complaint SI Disposition Transported No Lights/[place] Dispatch Reason Psychiatric Problem/Abnormal Behavior/Suicide Attempt Transported To [facility] Narrative M41 DISPATCHED TO A PSYCH. M41 AOS AND FOUND A MALE PT WHO STATES THAT HE IS FEELING SUICIDAL AFTER [address] [address] EMS Patient Care Report Name: NIKO HILLIARD Room #: DEP Rajni.#: [id number] Admission: 09/05/21 Attend Phys: Discharge: 09/05/21 Date of : 67 Report #: [id number] FINDING OUT THAT HIS DAD TODAY. THE PT STATES THAT HE DOES HAVE A PLAN BUT REFUSES TO TELL ME WHAT IT IS. PT IS ETOH AND DOES NOT TELL ME APPROXIMATELY HOW MUCH HE HAD TO DRINK. PT DENIES HAVING ANY OTHER COMPLAINTS. VITALS OBTAINED. M[address] [facility]. EN ROUTE PT REMAINED STABLE. PD FOLLOWED. REPORT GIVEN TO YASMINE DOE. SIGNATURES OBTAINED. I SIGNED FOR PT DUE TO ETOH. TRANSFER OF CARE TOOK PLACE. M41 IN SERVICE. Initial Vitals @03:09P: 114,R: 18,BP: 155/102,Pain: 0/10,GCS: 15,SpO2: 94,Revised Trauma: 12, @03:12P: 103,R: 18,BP: 127/91,Pain: 0/10,GCS: 15,CO: 4,SpO2: 94,Revised Trauma: 12, Assessments @03:12MENTAL:Event Oriented,Place Oriented,Person Oriented,Time Oriented,SKIN:HEENT:Head/Face: No Abnormalities,Neck/Airway: No Abnormalities,LUNG SOUNDS:General: No Abnormalities,ABDOMEN:General: No Abnormalities,PELVIS//GI:No Abnormalities,EXTREMITIES:Capillary Refill: Right Upper: < 2 Sec,Left Arm: No Abnormalities,Right Arm: No Abnormalities,Left Leg: No Abnormalities,Right Leg: No Abnormalities,PULSE:Radial: 2+ Normal,NEURO:No Abnormalities, Impression Behavioral/psychiatric episode Procedures @03:11ALS AssessmentResponse: UnchangedSucceeded Timeline 02:58,Call Received 02:58,Dispatch Notified 02:58,Dispatched 02:59,En Route 03:05,On Scene 03:06,At Patient 03:09,BP: 155/102 M,PULSE: 114,RR: 18 R,SPO2: 94 Ox,ETCO2: ,BG: ,PAIN: 0,GCS: 15, 03:11,Depart Scene 03:11,ALS Assessment,Response: UnchangedSucceeded, 03:12,BP: 127/91 M,PULSE: 103,RR: 18 R,SPO2: 94 Ox,ETCO2: ,BG: ,PAIN: 0,GCS: 15, [facility] [address] [place] [address] EMS Patient Care Report Name: DIVINE HILLIARDIP Room #: DEP Reji#: [id number] Admission: 09/05/21 Attend Phys: Discharge: 09/05/21 Date of : 67 Report #: [id number] 03:30,At Destination 03:36,Call Closed Disclaimer v1.1 Copyright 2020 [employer] This EMS Care Summary contains data elements from the applicable legal record (which may be displayed differently). It is designed to provide pertinent information for the following purposes: continuity of care, clinical quality, and state data reporting. The complete legal record is available to ED staff and administrators of the receiving hospital in [employer]'s Patient Tracker. All data is provided "as is."
[2021-09-05 04:12] LABS: ABSOLUTE NEUTROPHILS 2.9 thou/uL (1.4-8.2); BASOPHILS 0.9 % (0.0-2.0); EOSINOPHILS 1.9 % (0.0-3.0); HEMATOCRIT 51.3 % (42.0-52.0); HEMOGLOBIN 17.5 gm/dL (14.0-18.0); LYMPHOCYTES 56.9 % (24.0-44.0); MCH 36.1 pg (26.0-34.0); MCHC 34.2 g/dL (28.0-37.0); MCV 105.7 fL (80.0-100.0); MONOCYTES 5.4 % (1.0-8.0); PLATELET COUNT 341 thou/uL (150-400); POLYS 34.9 % (36.0-66.0); RBC 4.86 mil/uL (4.50-6.00); RDW 14.1 % (10.5-14.5); WBC 8.2 thou/uL (4.0-11.0)
[2021-09-05 04:13] LABS: CALCIUM 8.3 mg/dL (8.5-10.1); POTASSIUM 3.6 mmol/L (3.5-5.1)
[2021-09-05 04:19] LABS: ALBUMIN 3.4 g/dL (3.4-5.0); SALICYLATE 8.4 mg/dL (2.8-20.0); TOTAL BILIRUBIN 0.2 mg/dL (0.2-1.0); TOTAL PROTEIN 7.4 g/dL (6.4-8.2)
[2021-09-05 05:35] LABS: AMP/METHAMP Negative (Negative); BARBITURATES Negative (Negative); BENZODIAZEPINES POSITIVE (Negative); COCAINE Negative (Negative); METHADONE Negative (Negative); OPIATES Negative (Negative); PCP Negative (Negative)
[2021-09-05 20:02] VITALS: BP 158/97
== END 2021-09-05 20:11 | disposition home or self-care (01) ==
LOC: ER 03:24
PROVIDERS: Emergency Medicine
DX: F32.9 Major depressive disorder, single episode, unspecified (principal); Z20.822 Contact with and (suspected) exposure to COVID-19; R45.851 Suicidal ideations; F10.10 Alcohol abuse, uncomplicated; Y90.9 Presence of alcohol in blood, level not specified; E78.5 Hyperlipidemia, unspecified; F41.9 Anxiety disorder, unspecified; I10 Essential (primary) hypertension; F17.210 Nicotine dependence, cigarettes, uncomplicated; Z79.899 Other long term (current) drug therapy

== ENCOUNTER 2021-09-08 19:58 | Emergency (ER) | payer OTHER ==
[~2021-09-08] VITALS: Ht 170.2 cm; Wt 75.8 kg
[2021-09-08 20:07] VITALS: BP 133/95
== END 2021-09-08 20:53 | disposition home or self-care (01) ==
LOC: ER 19:58
DX: F10.129 Alcohol abuse with intoxication, unspecified (principal); I10 Essential (primary) hypertension; F32.9 Major depressive disorder, single episode, unspecified; Z79.899 Other long term (current) drug therapy

== ENCOUNTER 2021-09-16 18:16 | Emergency (ER) | payer OTHER ==
--- NOTE | ~2021-09-16 | EMS ---
[address] [address] EMS Patient Care Report Name: NIKO HILLIARD Room #: DEP JANICE Mendoza#: [id number] Admission: 09/16/21 Attend Phys: Discharge: 09/16/21 Date of : 67 Report #: [id number] THIS REPORT FOR: //name// Report Transmitted: 09/18/2021 09:34 EMS Care Summary [place], [place]/[facility] Incident [id number] @ 09/16/2021 17:38 Incident Location [address] [place] [address] Patient NIKO HILLIARD Male, 56 Years 1965 Patient Address [address] [place] [address] Patient History Asthma,Chronic Obstructive Pulmonary Disease (COPD),Hypertension (HTN),Alcohol Abuse, Patient Allergies No known allergies, Patient Medications Lexapro, Hydroxyzine, Lisinopril, Chief Complaint SI Disposition Transported No Lights/[place] Dispatch Reason Psychiatric Problem/Abnormal Behavior/Suicide Attempt Transported To [facility] Narrative SCENE: ON ARRIVAL PT FOUND STANDING UPRIGHT OUT FRONT OF ADDRESS PROVIDED. PT IS AWAKE AND ALERT WITH A GCS OF 15. PT C/O SI AFTER MISSING HIS FATHER'S TODAY. PT AMBULATORY TO EMS UNIT. [address] [address] EMS Patient Care Report Name: NIKO HILLIARD Room #: DEP JANICE Mendoza#: [id number] Admission: 09/16/21 Attend Phys: Discharge: 09/16/21 Date of : 67 Report #: [id number] AMBULANCE: VITALS MONITORED. NO CHANGES. Initial Vitals @17:55P: 98,R: 22,BP: 107/57,Pain: 0/10,GCS: 15,Glucose: 97,Revised Trauma: 12, @18:06P: 94,R: 14,GCS: 15,Revised Trauma: 12, Assessments @17:56MENTAL:No Abnormalities,SKIN:No Abnormalities,HEENT:Head/Face: No Abnormalities,Eyes: No Abnormalities,Neck/Airway: No Abnormalities,LUNG SOUNDS:General: No Abnormalities,Left Upper: No Abnormalities,Right Upper: No Abnormalities,Left Lower: No Abnormalities,Right Lower: No Abnormalities,ABDOMEN:General: No Abnormalities,Left Upper: No Abnormalities,Right Upper: No Abnormalities,Left Lower: No Abnormalities,Right Lower: No Abnormalities,PELVIS//GI:No Abnormalities,EXTREMITIES:Left Arm: No Abnormalities,Right Arm: No Abnormalities,Left Leg: No Abnormalities,Right Leg: No Abnormalities,PULSE:NEURO:No Abnormalities,@18:08MENTAL:No Abnormalities,SKIN:No Abnormalities,HEENT:Head/Face: No Abnormalities,Eyes: No Abnormalities,Neck/Airway: No Abnormalities,LUNG SOUNDS:General: No Abnormalities,Left Upper: No Abnormalities,Right Upper: No Abnormalities,Left Lower: No Abnormalities,Right Lower: No Abnormalities,ABDOMEN:General: No Abnormalities,Left Upper: No Abnormalities,Right Upper: No Abnormalities,Left Lower: No Abnormalities,Right Lower: No Abnormalities,PELVIS//GI:No Abnormalities,EXTREMITIES:Left Arm: No Abnormalities,Right Arm: No Abnormalities,Left Leg: No Abnormalities,Right Leg: No Abnormalities,PULSE:NEURO:No Abnormalities, Impression Behavioral/psychiatric episode Procedures @17:55ALS AssessmentResponse: UnchangedSucceeded Timeline 17:36,Call Received 17:36,Dispatch Notified 17:38,Dispatched 17:39,En Route 17:53,On Scene 17:54,At Patient 17:55,ALS Assessment,Response: UnchangedSucceeded, 17:55,BP: 107/57 M,PULSE: 98,RR: 22 R,SPO2: Ox,ETCO2: ,B,PAIN: 0,GCS: 15, 17:56,Depart Scene 18:06,BP: 118/ M,PULSE: 94,RR: 14 R,SPO2: Ox,ETCO2: ,BG: ,PAIN: ,GCS: 15, 18:20,At Destination 18:20,Call Closed [facility] [address] [place] [address] EMS Patient Care Report Name: NIKO HILLIARD Room #: DEP JANICE Mendoza#: [id number] Admission: 09/16/21 Attend Phys: Discharge: 09/16/21 Date of : 67 Report #: [id number] Disclaimer v1.1 Copyright 2020 [employer] This EMS Care Summary contains data elements from the applicable legal record (which may be displayed differently). It is designed to provide pertinent information for the following purposes: continuity of care, clinical quality, and state data reporting. The complete legal record is available to ED staff and administrators of the receiving hospital in [employer]'s Patient Tracker. All data is provided "as is."
[2021-09-16 18:57] LABS: AMP/METHAMP Negative (Negative); BARBITURATES Negative (Negative); BENZODIAZEPINES Negative (Negative); COCAINE Negative (Negative); METHADONE Negative (Negative); OPIATES Negative (Negative); PCP Negative (Negative)
[2021-09-16 19:45] LABS: ABSOLUTE NEUTROPHILS 6.5 thou/uL (1.4-8.2); BASOPHILS 0.6 % (0.0-2.0); EOSINOPHILS 1.4 % (0.0-3.0); HEMATOCRIT 49.5 % (42.0-52.0); LYMPHOCYTES 32.3 % (24.0-44.0); MCH 36.4 pg (26.0-34.0); MCHC 34.4 g/dL (28.0-37.0); MCV 105.7 fL (80.0-100.0); MONOCYTES 7.6 % (1.0-8.0); PLATELET COUNT 258 thou/uL (150-400); POLYS 58.1 % (36.0-66.0); RBC 4.68 mil/uL (4.50-6.00); RDW 14.5 % (10.5-14.5); WBC 11.2 thou/uL (4.0-11.0)
[2021-09-16 19:51] LABS: CALCIUM 8.7 mg/dL (8.5-10.1); CREATININE 0.7 mg/dL (0.7-1.3); POTASSIUM 4.3 mmol/L (3.5-5.1)
[2021-09-16 21:49] VITALS: BP 92/52
== END 2021-09-16 21:50 | disposition home or self-care (01) ==
LOC: ER 18:16
PROVIDERS: Emergency Medicine
DX: R45.851 Suicidal ideations (principal); E78.5 Hyperlipidemia, unspecified; F41.9 Anxiety disorder, unspecified; I10 Essential (primary) hypertension; F32.9 Major depressive disorder, single episode, unspecified; F17.210 Nicotine dependence, cigarettes, uncomplicated; Z79.899 Other long term (current) drug therapy

== ENCOUNTER 2021-10-15 22:30 | Emergency (ER) | payer OTHER ==
[~2021-10-15] VITALS: Ht 170.2 cm; Wt 71.2 kg
--- NOTE | ~2021-10-15 | EMS ---
[address] [address] EMS Patient Care Report Name: NIKO HILLIARD Room #: DEP JANICE Mendoza#: [id number] Admission: 10/15/21 Attend Phys: Discharge: 10/16/21 Date of : 67 Report #: [id number] THIS REPORT FOR: //name// Report Transmitted: 10/16/2021 12:23 EMS Care Summary [place], [place] Incident [id number] @ 10/15/2021 21:47 Incident Location [address] [place], [place] [id number] Patient NIKO HILLIARD Male, 56 Years 1965 Patient Address [address] [place] [address] Patient History Asthma,Chronic Obstructive Pulmonary Disease (COPD),Hypertension (HTN),Alcohol Abuse, Patient Allergies No known allergies, Patient Medications Lexapro, Lisinopril, Hydroxyzine, Chief Complaint Depression Disposition Transported No Lights/[employer] Dispatch Reason Psychiatric Problem/Abnormal Behavior/Suicide Attempt Transported To [facility] Narrative M42 dispatched to psychiatric with PD on scene. Arrived to find PT in front yard with PD. PT ambulated without assistance to ambulance and was seated and buckled in on bench seat. PT states he feels depressed today and contacted [address] [address] EMS Patient Care Report Name: NIKO HILLIARD Room #: DEP ER Reji#: [id number] Admission: 10/15/21 Attend Phys: Discharge: 10/16/21 Date of : 67 Report #: [id number] [facility] seen in [facility]. PT states he has always had feelings of depression, but recently lost his father and has no one to talk to. PT denies SI/HI. Vital signs were monitored through out transport with no decline in mental or physical status. Transfer of care was given to RN in ER. Initial Vitals @22:01P: 94,R: 16,BP: 116/79,Pain: 0/10,GCS: 15,SpO2: 98,Revised Trauma: 12, @22:08P: 86,R: 16,BP: 107/70,Pain: 0/10,GCS: 15,CO: 20,SpO2: 98,Revised Trauma: 12, Assessments @21:58MENTAL:Event Oriented,Person Oriented,Time Oriented,Place Oriented,SKIN:HEENT:Head/Face: No Abnormalities,Neck/Airway: No Abnormalities,LUNG SOUNDS:General: No Abnormalities,ABDOMEN:General: No Abnormalities,PELVIS//GI:No Abnormalities,EXTREMITIES:Left Arm: No Abnormalities,Right Arm: No Abnormalities,Left Leg: No Abnormalities,Right Leg: No Abnormalities,PULSE:NEURO:No Abnormalities, Impression Behavioral/psychiatric episode Procedures @21:58 BLS Assessment Response: Unchanged Timeline 21:46,Call Received 21:46,Dispatch Notified 21:47,Dispatched 21:48,En Route 21:57,On Scene 21:58,At Patient 21:58,BLS Assessment,Response: Unchanged 22:01,BP: 116/79 M,PULSE: 94,RR: 16 R,SPO2: 98 Ox,ETCO2: ,BG: ,PAIN: 0,GCS: 15, 22:05,Depart Scene 22:08,BP: 107/70 M,PULSE: 86,RR: 16 R,SPO2: 98 Ox,ETCO2: ,BG: ,PAIN: 0,GCS: 15, 22:27,At Destination 22:40,Call Closed Disclaimer v1.1 Copyright 2020 [employer] This EMS Care Summary contains data elements from the applicable legal record (which may be displayed differently). It is designed to provide pertinent information for the following purposes: continuity of care, clinical quality, and state data reporting. The complete legal record is available to ED staff and administrators of the receiving hospital in [facility]'s Patient Tracker. All data [address] [address] EMS Patient Care Report Name: NIKO HILLIARD Room #: DEP JANICE Mendoza#: [id number] Admission: 10/15/21 Attend Phys: Discharge: 10/16/21 Date of : 67 Report #: [id number] is provided "as is."
[2021-10-16 00:29] LABS: ABSOLUTE NEUTROPHILS 12.1 thou/uL (1.4-8.2); BASOPHILS 0.5 % (0.0-2.0); HEMATOCRIT 54.8 % (42.0-52.0); LYMPHOCYTES 20.2 % (24.0-44.0); MCH 36.5 pg (26.0-34.0); MCHC 34.7 g/dL (28.0-37.0); MONOCYTES 5.6 % (1.0-8.0); PLATELET COUNT 271 thou/uL (150-400); POLYS 72.7 % (36.0-66.0); RBC 5.22 mil/uL (4.50-6.00); RDW 13.9 % (10.5-14.5); WBC 16.7 thou/uL (4.0-11.0)
[2021-10-16 00:39] LABS: ANION GAP 14 mmol/L (7-16); BUN 18 mg/dL (7-18); CALCIUM 9.1 mg/dL (8.5-10.1); CHLORIDE 102 mmol/L (98-107); CO2 23 mmol/L (21-32); CREATININE 1.1 mg/dL (0.7-1.3); GLUCOSE 108 mg/dL (74-106); POTASSIUM 3.8 mmol/L (3.5-5.1); SODIUM 139 mmol/L (136-145)
[2021-10-16 00:44] LABS: ALBUMIN 3.6 g/dL (3.4-5.0); DIRECT BILIRUBIN < 0.1 mg/dL (<0.1-0.2); SALICYLATE 7.1 mg/dL (2.8-20.0); SGOT 60 U/L (15-37); SGPT 110 U/L (16-63); TOTAL BILIRUBIN 0.2 mg/dL (0.2-1.0); TOTAL PROTEIN 7.7 g/dL (6.4-8.2)
[2021-10-16 02:41] LABS: AMP/METHAMP Negative (Negative); BARBITURATES Negative (Negative); BENZODIAZEPINES Negative (Negative); COCAINE Negative (Negative); METHADONE Negative (Negative); OPIATES Negative (Negative); PCP Negative (Negative)
[2021-10-16 03:34] VITALS: BP 95/61
== END 2021-10-16 03:25 | disposition home or self-care (01) ==
LOC: ER 22:30
PROVIDERS: Student in an Organized Health Care Education/Training Program
DX: R45.851 Suicidal ideations (principal); Z20.822 Contact with and (suspected) exposure to COVID-19; R07.81 Pleurodynia; F10.129 Alcohol abuse with intoxication, unspecified; F32.9 Major depressive disorder, single episode, unspecified; E78.5 Hyperlipidemia, unspecified; F41.9 Anxiety disorder, unspecified; I10 Essential (primary) hypertension; F17.210 Nicotine dependence, cigarettes, uncomplicated; Z79.1 Long term (current) use of non-steroidal anti-inflammatories (NSAID); Z79.891 Long term (current) use of opiate analgesic; Z79.899 Other long term (current) drug therapy

== ENCOUNTER 2021-10-26 19:16 | Emergency (ER) | payer OTHER ==
[~2021-10-26] VITALS: Ht 175.3 cm; Wt 74.8 kg
[2021-10-26 20:02] LABS: ABSOLUTE NEUTROPHILS 5.4 thou/uL (1.4-8.2); EOSINOPHILS 0.9 % (0.0-3.0); HEMATOCRIT 52.8 % (42.0-52.0); HEMOGLOBIN 18.4 gm/dL (14.0-18.0); LYMPHOCYTES 35.2 % (24.0-44.0); MCHC 34.9 g/dL (28.0-37.0); MCV 103.3 fL (80.0-100.0); MONOCYTES 8.2 % (1.0-8.0); PLATELET COUNT 202 thou/uL (150-400); POLYS 54.7 % (36.0-66.0); RBC 5.11 mil/uL (4.50-6.00); RDW 13.7 % (10.5-14.5); WBC 9.8 thou/uL (4.0-11.0)
[2021-10-26 20:13] LABS: CALCIUM 9.1 mg/dL (8.5-10.1); CREATININE 0.7 mg/dL (0.7-1.3); POTASSIUM 3.9 mmol/L (3.5-5.1)
[2021-10-26 20:19] LABS: ALBUMIN 3.7 g/dL (3.4-5.0); TOTAL BILIRUBIN 0.7 mg/dL (0.2-1.0); TOTAL PROTEIN 7.7 g/dL (6.4-8.2)
== END 2021-10-26 23:56 | disposition home or self-care (01) ==
LOC: ER 19:16
PROVIDERS: Emergency Medicine
DX: S22.32XA Fracture of one rib, left side, initial encounter for closed fracture (principal); Z20.822 Contact with and (suspected) exposure to COVID-19; F10.129 Alcohol abuse with intoxication, unspecified; F41.9 Anxiety disorder, unspecified; I10 Essential (primary) hypertension; F32.9 Major depressive disorder, single episode, unspecified; F17.210 Nicotine dependence, cigarettes, uncomplicated; Z79.899 Other long term (current) drug therapy; Z79.891 Long term (current) use of opiate analgesic; X58.XXXA Exposure to other specified factors, initial encounter; Y93.89 Activity, other specified; Y92.89 Other specified places as the place of occurrence of the external cause; Y99.8 Other external cause status

== ENCOUNTER 2021-11-23 10:21 | Emergency (ER) | payer OTHER ==
[~2021-11-23] VITALS: Ht 175.3 cm; Wt 65.8 kg
--- NOTE | ~2021-11-23 | EMS ---
[facility] [address] [place] [address] EMS Patient Care Report Name: NIKO HILLIARD Room #: REG JANICE Mendoza#: [id number] Admission: 11/23/21 Attend Phys: Discharge: Date of : 67 Report #: [id number] THIS REPORT FOR: //name// Report Transmitted: 11/23/2021 09:56 EMS Care Summary [place], [place]/[facility] Incident [id number] @ 11/23/2021 09:51 [address]ident [address] [place], [place] [id number] Patient HUGH HILLIARD Male, 56 Years 1965 Patient Address [address] [place], [place] [id number] Patient History Chronic Obstructive Pulmonary Disease (COPD),Alcohol Abuse, Patient Allergies No known allergies, Patient Medications None Reported, Chief Complaint Suicidal Ideations Disposition Transported No Lights/[place] Dispatch Reason Psychiatric Problem/Abnormal Behavior/Suicide Attempt Transported To [facility] Narrative M42 dispatched for a 56 year old male conscious and breathing with Suicidal ideations. Patient acknowledges EMS presence is CGS 15, AAOx4. Patient has a patent airway is breathing adequately with strong regular radial pulses. Skin is pink warm and dry. Patient advises and confirms Suicidal ideations and to [facility] [address] [place] [address] EMS Patient Care Report Name: NIOK HILLIARD Room #: REG AJNICE Mendoza#: [id number] Admission: 11/23/21 Attend Phys: Discharge: Date of : 67 Report #: [id number] consuming a pint of alcohol. Patient is assisted into the ambulance and placed on the bench seat and secured with seatbelts. VS are obtained and transport is initiated. Assessment conducted is unremarkable. Arrival at the receiving facility patient is offloaded and taken to ED room 1. RN is given report and signatures are obtained. Transfer of care is completed and M42 returns to service. Initial Vitals @10:08P: 97,R: 16,BP: 109/76,Pain: 0/10,GCS: 15,SpO2: 97,Revised Trauma: 12, @10:05P: 93,R: 16,BP: 119/66,Pain: 0/10,GCS: 15,SpO2: 97,Revised Trauma: 12, Assessments @10:27MENTAL:No Abnormalities,SKIN:No Abnormalities,HEENT:Head/Face: No Abnormalities,Eyes: No Abnormalities,Neck/Airway: No Abnormalities,LUNG SOUNDS:General: No Abnormalities,Left Upper: No Abnormalities,Right Upper: No Abnormalities,Left Lower: No Abnormalities,Right Lower: No Abnormalities,ABDOMEN:General: No Abnormalities,Left Upper: No Abnormalities,Right Upper: No Abnormalities,Left Lower: No Abnormalities,Right Lower: No Abnormalities,PELVIS//GI:No Abnormalities,EXTREMITIES:Left Arm: No Abnormalities,Right Arm: No Abnormalities,Left Leg: No Abnormalities,Right Leg: No Abnormalities,PULSE:Radial: 2+ Normal,NEURO:No Abnormalities, Impression Suicidal Ideation Procedures @10:03 ALS Assessment Response: UnchangedSucceeded Timeline 09:50,Call Received 09:50,Dispatch Notified 09:51,Dispatched 09:51,En Route 09:58,On Scene 10:00,At Patient 10:03,ALS Assessment,Response: UnchangedSucceeded, 10:03,Depart Scene 10:05,BP: 119/66 M,PULSE: 93,RR: 16 R,SPO2: 97 Ox,ETCO2: ,BG: ,PAIN: 0,GCS: 15, 10:08,BP: 109/76 M,PULSE: 97,RR: 16 R,SPO2: 97 Ox,ETCO2: ,BG: ,PAIN: 0,GCS: 15, 10:18,At Destination 10:30,Call Closed [facility] [address] [address] EMS Patient Care Report Name: NIKO HILLIARD Room #: REG Rajni.#: [id number] Admission: 11/23/21 Attend Phys: Discharge: Date of : 67 Report #: [id number] Disclaimer v1.1 Copyright 202 [employer] This EMS Care Summary contains data elements from the applicable legal record (which may be displayed differently). It is designed to provide pertinent information for the following purposes: continuity of care, clinical quality, and state data reporting. The complete legal record is available to ED staff and administrators of the receiving hospital in [facility]'s Patient Tracker. All data is provided "as is."
[2021-11-23 11:31] LABS: HEMATOCRIT 51.2 % (42.0-52.0); HEMOGLOBIN 17.5 gm/dL (14.0-18.0); MCH 35.6 pg (26.0-34.0); MCHC 34.2 g/dL (28.0-37.0); MCV 104.2 fL (80.0-100.0); RBC 4.91 mil/uL (4.50-6.00); RDW 12.9 % (10.5-14.5); WBC 8.4 thou/uL (4.0-11.0)
[2021-11-23 11:48] LABS: CALCIUM 8.2 mg/dL (8.5-10.1); POTASSIUM 3.6 mmol/L (3.5-5.1)
[2021-11-23 16:31] VITALS: BP 127/84
[2021-11-23 16:58] LABS: AMP/METHAMP Negative (Negative); BARBITURATES Negative (Negative); BENZODIAZEPINES Negative (Negative); COCAINE Negative (Negative); METHADONE Negative (Negative); OPIATES Negative (Negative); PCP Negative (Negative)
== END 2021-11-23 16:32 | disposition home or self-care (01) ==
LOC: ER 10:21
PROVIDERS: Emergency Medicine
DX: F10.20 Alcohol dependence, uncomplicated (principal); Z20.822 Contact with and (suspected) exposure to COVID-19; R45.851 Suicidal ideations; F32.9 Major depressive disorder, single episode, unspecified; F41.9 Anxiety disorder, unspecified; E78.5 Hyperlipidemia, unspecified; I10 Essential (primary) hypertension; F17.210 Nicotine dependence, cigarettes, uncomplicated; Z79.899 Other long term (current) drug therapy; Y90.8 Blood alcohol level of 240 mg/100 ml or more

== ENCOUNTER 2021-12-10 16:01 | Emergency (ER) | payer OTHER ==
[~2021-12-10] VITALS: Ht 175.3 cm; Wt 65.8 kg
--- NOTE | ~2021-12-10 | EMS ---
[facility] [address] [place] [address] EMS Patient Care Report Name: NIKO HILLIARD Room #: DEP JANICE Mendoza#: [id number] Admission: 12/10/21 Attend Phys: Discharge: 12/11/21 Date of : 67 Report #: [id number] THIS REPORT FOR: //name// Report Transmitted: 12/13/2021 10:13 EMS Care Summary [place], [place]/[facility] Incident [id number] @ 12/10/2021 15:28 Incident Location [address] [place], [place] [id number] Patient HUGH HILLIARD Male, 56 Years 1965 Patient Address [address] [place] [address] Patient History Chronic Obstructive Pulmonary Disease (COPD),Alcohol Abuse, Patient Allergies No known allergies, Patient Medications Naproxen, Lisinopril, Hydroxyzine, Trazodone, Chief Complaint SI Disposition Transported No Lights/[place] Dispatch Reason Psychiatric Problem/Abnormal Behavior/Suicide Attempt Transported To [facility] Narrative M41 RESPONDED TO A RESIDENCE ON A PSYCH. PATIENT STATES HE'S BEEN SUICIDAL FOR TWO YEARS. PATIENT STATES HE'S DRANK 3-4 PINTS OF VODKA. UPON EMS ARRIVAL PATIENT FOUND STANDING IN FRONT YARD WITH POLICE. PATIENT [facility] [address] [place] [address] EMS Patient Care Report Name: NIKO HILLIARD Room #: DEP ER Reji#: [id number] Admission: 12/10/21 Attend Phys: Discharge: 12/11/21 Date of : 67 Report #: [id number] WALKS TO THE AMBULANCE AND HIS BUCKLED IN WITH SEATBELTS TWO SETS OF STABLE VITALS OBTAINED ENROUTE. PATIENT TRANSFERRED SELF FROM COT TO HOSPITAL BED WITH NO ISSUES. REPORT GIVEN TO RN. RN SIGNATURE OBTAINED. Initial Vitals @16:12P: 98,R: 16,BP: 138/90,Pain: 0/10,GCS: 15,SpO2: 98,Revised Trauma: 12, Assessments @15:40MENTAL:Event Oriented,Person Oriented,Place Oriented,Time Oriented,SKIN:HEENT:Head/Face: No Abnormalities,Neck/Airway: No Abnormalities,LUNG SOUNDS:General: No Abnormalities,ABDOMEN:General: No Abnormalities,PELVIS//GI:No Abnormalities,EXTREMITIES:Left Arm: No Abnormalities,Right Arm: No Abnormalities,Left Leg: No Abnormalities,Right Leg: No Abnormalities,PULSE:NEURO:No Abnormalities, Impression Suicidal Ideation Procedures @15:40 ALS Assessment Response: UnchangedSucceeded @15:40 BLS Assessment Response: Unchanged Timeline 15:27,Call Received 15:27,Dispatch Notified 15:28,Dispatched 15:29,En Route 15:37,On Scene 15:39,At Patient 15:40,ALS Assessment,Response: UnchangedSucceeded, 15:40,BLS Assessment,Response: Unchanged 15:44,Depart Scene 16:08,At Destination 16:12,BP: 138/90 M,PULSE: 98,RR: 16 R,SPO2: 98 Ox,ETCO2: ,BG: ,PAIN: 0,GCS: 15, 16:24,Call Closed Disclaimer v1.1 Copyright 2021 [employer] This EMS Care Summary contains data elements from the applicable legal record (which may be displayed differently). It is designed to provide pertinent information for the following purposes: continuity of care, clinical quality, and state data reporting. The complete legal record is available to ED staff and administrators of the receiving hospital in [employer]'s Patient Tracker. All data is provided "as is."
[2021-12-10] MEDS ORDERED: ENBRACE HR SOF1 EACH PO (16:07)
[2021-12-10] MEDS ORDERED: NAPROSYN500 MG PO (16:07)
[2021-12-10] MEDS ORDERED: ACAMPROSATE CA333 MG PO (16:08)
[2021-12-10] MEDS ORDERED: LISINOPRIL10 MG PO (16:08)
[2021-12-10] MEDS ORDERED: HYDROXYZINE HCL50 MG PO (16:09)
[2021-12-10 16:31] LABS: ABSOLUTE NEUTROPHILS 3.1 thou/uL (1.4-8.2); BASOPHILS 1.2 % (0.0-2.0); EOSINOPHILS 1.5 % (0.0-3.0); HEMATOCRIT 50.9 % (42.0-52.0); HEMOGLOBIN 17.5 gm/dL (14.0-18.0); LYMPHOCYTES 50.9 % (24.0-44.0); MCH 35.8 pg (26.0-34.0); MCHC 34.4 g/dL (28.0-37.0); MONOCYTES 5.9 % (1.0-8.0); PLATELET COUNT 414 thou/uL (150-400); POLYS 40.5 % (36.0-66.0); RBC 4.89 mil/uL (4.50-6.00); WBC 7.7 thou/uL (4.0-11.0)
[2021-12-10 16:45] LABS: CALCIUM 8.5 mg/dL (8.5-10.1); CREATININE 0.9 mg/dL (0.7-1.3); POTASSIUM 3.8 mmol/L (3.5-5.1)
[2021-12-10 16:51] LABS: ALBUMIN 3.5 g/dL (3.4-5.0); TOTAL BILIRUBIN 0.2 mg/dL (0.2-1.0); TOTAL PROTEIN 7.6 g/dL (6.4-8.2)
[2021-12-10 21:40] LABS: URINE BILIRUBIN NEGATIVE (Negative); URINE BLOOD NEGATIVE (Negative); URINE CLARITY CLEAR; URINE COLOR YELLOW; URINE GLUCOSE-RANDOM* 1+ (Negative); URINE KETONES NEGATIVE (Negative); URINE LEUKOCYTES-REFLEX NEGATIVE (Negative); URINE NITRITE-REFLEX NEGATIVE (Negative); URINE PROTEIN (DIPSTICK) 2+ (Negative); URINE SPECIFIC GRAVITY >= 1.030 (1.005-1.035); URINE UROBILINOGEN 0.2 E.U./dl (0.2-1.0)
[2021-12-10 21:48] LABS: AMP/METHAMP Negative (Negative); BARBITURATES Negative (Negative); BENZODIAZEPINES Negative (Negative); COCAINE Negative (Negative); METHADONE Negative (Negative); OPIATES Negative (Negative); PCP Negative (Negative)
[2021-12-10 21:53] LABS: BACTERIA-REFLEX None Seen /HPF (None Seen); CASTS None Seen /LPF (None Seen); CRYSTALS None Seen /LPF (None Seen); MUCUS >6 Heavy strn/LPF (None Seen); SQUAMOUS 0-3 Few /LPF (0-3); URINE RBC None Seen /HPF (NONE SEEN); URINE WBC-REFLEX 0-5 Rare /HPF (0-5)
[2021-12-11 00:47] VITALS: BP 136/94
== END 2021-12-11 00:47 ==
LOC: ER 16:01
PROVIDERS: Emergency Medicine; Physician Assistant
DX: U07.1 COVID-19 (principal); R45.851 Suicidal ideations; F10.20 Alcohol dependence, uncomplicated; Y90.9 Presence of alcohol in blood, level not specified

== ENCOUNTER 2021-12-19 19:04 | Emergency (ER) | payer OTHER ==
[~2021-12-19] VITALS: Ht 175.3 cm; Wt 65.8 kg
--- NOTE | ~2021-12-19 | EMS ---
[address] [address] EMS Patient Care Report Name: NIKO HILLIARD Room #: DEP JANICE Mendoza#: [id number] Admission: 12/19/21 Attend Phys: Discharge: 12/20/21 Date of : 67 Report #: [id number] THIS REPORT FOR: //name// Report Transmitted: 12/20/2021 06:21 EMS Care Summary [place], [place]/[facility] Incident [id number] @ 12/19/2021 18:10 Incident Location [address] [place] [address] Patient HUGH HILLIARD Male, 56 Years 1965 Patient Address [address] [place] [address] Patient History Chronic Obstructive Pulmonary Disease (COPD),Alcohol Abuse, Patient Allergies No known allergies, Patient Medications Lisinopril, Hydroxyzine, Trazodone, Naproxen, Chief Complaint suicidal ideations Disposition Transported No Lights/[place] Dispatch Reason Psychiatric Problem/Abnormal Behavior/Suicide Attempt Transported To [facility] Narrative Medic 18 was dispatched for a 56 y/o male for a "psychiatric." Upon arrival to the scene the pt. was conscious and alert but heavily intoxicated. He stated that he was suicidal and COVID positive. He was loaded into the ambulance and transport was initiated to [facility]. Upon arrival to the ED, full [address] [address] EMS Patient Care Report Name: NIKO HILLIARD Room #: DEP [facility].#: [id number] Admission: 12/19/21 Attend Phys: Discharge: 12/20/21 Date of : 67 Report #: [id number] report and care was given to the RN. No further care was needed from EMS personnel, therefore Medic 18 returned back to service. Electronically Signed By: Yunier Tong, LISA/NRNella 12/19/2021 Initial Vitals @18:49P: 89,R: 18,BP: 122/94,SpO2: 98, @18:36P: 95,R: 18,BP: 128/106,Pain: 0/10,GCS: 15,Glucose: 209,CO: 12,SpO2: 99,Revised Trauma: 12, Assessments @18:31MENTAL:Place Oriented,Person Oriented,Event Oriented,Time Oriented,SKIN:HEENT:LUNG SOUNDS:ABDOMEN:PELVIS//GI:EXTREMITIES:PULSE:NEURO:Slurred Speech, Impression Behavioral/psychiatric episode Procedures @18:31 ALS Assessment Response: UnchangedSucceeded Timeline 18:05,Call Received 18:05,Dispatch Notified 18:10,Dispatched 18:10,En Route 18:28,On Scene 18:30,At Patient 18:31,ALS Assessment,Response: UnchangedSucceeded, 18:36,BP: 128/106 M,PULSE: 95,RR: 18 R,SPO2: 99 Ox,ETCO2: ,B,PAIN: 0,GCS: 15, 18:40,Depart Scene 18:49,BP: 122/94 M,PULSE: 89,RR: 18 R,SPO2: 98 Ox,ETCO2: ,BG: ,PAIN: ,GCS: , 19:24,At Destination 19:28,Call Closed Disclaimer v1.1 Copyright 2021 [employer] This EMS Care Summary contains data elements from the applicable legal record (which may be displayed differently). It is designed to provide pertinent information for the following purposes: continuity of care, clinical quality, and state data reporting. The complete legal record is available to ED staff [facility] [address] [place] [address] EMS Patient Care Report Name: NIKO HILLIARD Room #: DEP JANICE Mendoza#: [id number] Admission: 12/19/21 Attend Phys: Discharge: 12/20/21 Date of : 67 Report #: [id number] and administrators of the receiving hospital in [facility]'s Patient Tracker. All data is provided "as is."
[~2021-12-19 19:04] MED LIST changes: +ACAMPROSATE CA333 MG PO; +ENBRACE HR SOF1 EACH PO; +HYDROXYZINE HCL50 MG PO; +LISINOPRIL10 MG PO
[2021-12-20 04:42] VITALS: BP 132/76
== END 2021-12-20 03:11 | disposition home or self-care (01) ==
LOC: ER 19:04
DX: F10.129 Alcohol abuse with intoxication, unspecified (principal); Z20.822 Contact with and (suspected) exposure to COVID-19; Y90.9 Presence of alcohol in blood, level not specified; E78.5 Hyperlipidemia, unspecified; F41.9 Anxiety disorder, unspecified; I10 Essential (primary) hypertension; F32.9 Major depressive disorder, single episode, unspecified; F17.210 Nicotine dependence, cigarettes, uncomplicated; Z79.899 Other long term (current) drug therapy

== ENCOUNTER 2022-01-15 17:05 | Emergency (ER) | payer OTHER ==
[~2022-01-15] VITALS: Ht 172.7 cm; Wt 68.0 kg
--- NOTE | ~2022-01-15 | EMS ---
[address] [address] EMS Patient Care Report Name: NIKO HILLIARD Room #: DEP JANICE Mendoza#: [id number] Admission: 01/15/22 Attend Phys: Discharge: 01/15/22 Date of : 67 Report #: [id number] THIS REPORT FOR: //name// Report Transmitted: 01/16/2022 10:15 EMS Care Summary [place], [place]/[facility] Incident [id number] @ 01/15/2022 16:24 Incident Location [address] [place] [address] Patient NIKO HILLIARD Male, 56 Years 1965 Patient Address [address] [place] [address] Patient History Chronic Obstructive Pulmonary Disease (COPD),Alcohol Abuse, Patient Allergies No known allergies, Patient Medications Lisinopril, Trazodone, Naproxen, Hydroxyzine, Chief Complaint SI Disposition Transported No Lights/[place] Dispatch Reason Psychiatric Problem/Abnormal Behavior/Suicide Attempt Transported To [facility] Narrative MEDIC 41 WAS REQUESTED TO A HOME FOR A PSYCH. UPON ARRIVAL EMS FOUND PD WITH PT ON THE FRONT STEPS OF THE HOME. PT STATES HE WANTS TO GO TO [facility]. PT STATES HE HAS BEEN DRINKING A LITTLE TODAY. PT STATES HE IS SI. [facility] [address] [place] [address] EMS Patient Care Report Name: NIKO HILLIARD Room #: DEP [facility]#: [id number] Admission: 01/15/22 Attend Phys: Discharge: 01/15/22 Date of : 67 Report #: [id number] PT WAS ASSISTED TO THE AMBULANCE, SAT ON THE BENCH SEATS, WAS BUCKLED IN, ANF GIVEN A MASK. EMS GATHERED VITALS AND PT ASKED TO GO TO [facility]. PT REMAINED STABLE THROUGHOUT TRANSPORT. REPORT WAS GIVEN TO RN AT [facility]. M41 BACK IN SERVICE. SANJANA SAMPSON EMTB Initial Vitals @16:38P: 100,R: 18,BP: 112/63,Pain: 0/10,GCS: 15,SpO2: 98,Revised Trauma: 12, @16:50P: 99,R: 18,BP: 129/85,Pain: 0/10,GCS: 15,SpO2: 100,Revised Trauma: 12, Assessments @16:33MENTAL:Place Oriented,Event Oriented,Time Oriented,Person Oriented,SKIN:HEENT:Head/Face: No Abnormalities,Neck/Airway: No Abnormalities,LUNG SOUNDS:General: No Abnormalities,Left Upper: No Abnormalities,Right Upper: No Abnormalities,Left Lower: No Abnormalities,Right Lower: No Abnormalities,ABDOMEN:General: No Abnormalities,Left Upper: No Abnormalities,Right Upper: No Abnormalities,Left Lower: No Abnormalities,Right Lower: No Abnormalities,PELVIS//GI:No Abnormalities,EXTREMITIES:Capillary Refill: Left Upper: < 2 Sec,Left Arm: No Abnormalities,Right Arm: No Abnormalities,Left Leg: No Abnormalities,Right Leg: No Abnormalities,PULSE:Radial: 2+ Normal,NEURO:No Abnormalities, Impression Behavioral/psychiatric episode Procedures @16:32 BLS Assessment Response: Unchanged @16:48 ALS Assessment Response: UnchangedSucceeded Timeline 16:23,Call Received 16:23,Dispatch Notified 16:24,Dispatched 16:25,En Route 16:30,On Scene 16:31,At Patient 16:32,BLS Assessment,Response: Unchanged 16:38,BP: 112/63 M,PULSE: 100,RR: 18 R,SPO2: 98 Ox,ETCO2: ,BG: ,PAIN: 0,GCS: 15, 16:41,Depart Scene 16:48,ALS Assessment,Response: UnchangedSucceeded, 16:50,BP: 129/85 M,PULSE: 99,RR: 18 R,SPO2: 100 Ox,ETCO2: ,BG: ,PAIN: 0,GCS: 15, [facility] [address] [place] [address] EMS Patient Care Report Name: NIKO HILLIARD [id number] Admission: 01/15/22 Attend Phys: Discharge: 01/15/22 Date of : 67 Report #: [id number] 17:02,At Destination 17:17,Call Closed Disclaimer v1.1 Copyright 2021 [employer] This EMS Care Summary contains data elements from the applicable legal record (which may be displayed differently). It is designed to provide pertinent information for the following purposes: continuity of care, clinical quality, and state data reporting. The complete legal record is available to ED staff and administrators of the receiving hospital in [facility]'s Patient Tracker. All data is provided "as is."
[2022-01-15 18:42] LABS: CALCIUM 9.2 mg/dL (8.5-10.1); CREATININE 0.8 mg/dL (0.7-1.3); POTASSIUM 3.7 mmol/L (3.5-5.1)
[2022-01-15 18:48] LABS: ALBUMIN 3.6 g/dL (3.4-5.0); SALICYLATE 6.7 mg/dL (2.8-20.0); TOTAL BILIRUBIN 0.3 mg/dL (0.2-1.0); TOTAL PROTEIN 7.4 g/dL (6.4-8.2)
[2022-01-15 20:36] VITALS: BP 122/88
== END 2022-01-15 20:38 | disposition home or self-care (01) ==
LOC: ER 17:05
PROVIDERS: Student in an Organized Health Care Education/Training Program
DX: R45.851 Suicidal ideations (principal); Z20.822 Contact with and (suspected) exposure to COVID-19; F10.10 Alcohol abuse, uncomplicated; F17.210 Nicotine dependence, cigarettes, uncomplicated; G89.29 Other chronic pain; I10 Essential (primary) hypertension